=== PATIENT | male | born 1950 | race Caucasian/White ===

== ENCOUNTER 2016-10-27 14:16 | Inpatient (IN) | payer OTHER ==
[~2016-10-27] VITALS: Ht 177.8 cm; Wt 89.5 kg
[2016-10-27] VITALS (18 sets, daily range): BP systolic 80–140; BP diastolic 53–125; PULSE 100–172; RESP 19–25; O2SAT 91–98
--- NOTE | 2016-10-27 14:23 | ED.REPORT ---
HPI-Dyspnea / Wheezing Date of Service Oct 27, 2016 ED Provider: Pedro Hdez The patient is a 66 year old male with no known medical history who was brought to the emergency department by EMS for shortness of breath that has worsened over the week. He has also experienced a productive cough with white sputum, decreased appetite, and fatigue. He denies fever, chills, nausea, vomiting, abdominal pain, runny nose, nasal congestion or chest pain. He is a former smoker. Nursing Notes Stated Complaint: SOB Nursing Notes Reviewed: Yes Allergies: Coded Allergies: No Known Allergies (Unverified , 10/27/16) No Active Prescriptions or Reported Meds General Time Seen by MD: 14:23 Chief Complaint Shortness of breath Hx Obtained From: Patient, EMS Arrived By: Ambulance Sudden in Onset?: No Onset Occurred: 1 week ago Symptom Duration: Since onset Location: : None Severity: Current: No pain currently Severity: Maximum: No pain Recent Healthcare: No recent doctor visit, No recent hospitalization Similar Sx Previous: No Past Medical History Past Medical History Denies Family History Noncontributory Smoking History Former Smoker Social History Other Social History: Local resident Ambulatory Status Independent Review of Systems Constitutional: Reports: Fatigue, Denies: Chills, Fever Ears / Nose / Throat: Denies: Nasal congestion Respiratory: Reports: Prod cough, white, Shortness of breath Cardiovascular: Denies: Chest pain Allergy / Immune: Denies: Rhinorrhea Complete sys rev & neg: except as marked. GI: Reports: Anorexia, Denies: Abdominal pain, Nausea, Vomiting Physical Exam Initial Vital Signs Vital Signs (First) Date Time Temp Pulse Resp B/P Pulse Ox O2 Delivery O2 Flow Rate FiO2 10/27/16 14:28 37.1 172 23 117/83 91 Room Air 10/27/16 14:30 4 Initial VS: Reviewed Head / Eyes: Atraumatic, Normocephalic, PERRL ENT: Mucous membranes moist, Conjunctiva normal, No scleral icterus Abdomen / GI: Soft, Non-tender, No guarding, No rebound, No distention Lymphatic: No lymphadenopathy Extremities: Vascular intact, Neuro intact, No swelling, No tenderness Skin: Warm, Dry, No cyanosis Neurologic: Alert, Oriented, Nonfocal Psychiatric: Mood/affect normal, Behavior normal, Normal thought content General/Constitutional: Awake, Alert, Cooperative Neck: Atraumatic, Supple, No meningismus, Full range of motion, No swelling, Non-tender, No masses Respiratory / Chest: Atraumatic, Breath sounds = bilat, No respiratory distress , No rales, No rhonchi, No retractions, No stridor Coarse breath sounds bilaterally Cardiovascular: Heart sounds NL, No gallop, No murmurs, No rubs, Peripheral circulation NL Heart Rate / Rhythm: Positive: Tachycardia Interpretation & Diagnostics Lab Results Interpretation Result Diagram: 10/27/16 1424 10/27/16 1424 Test 10/27/16 14:24 White Blood Count 26.9th/mm3 (3.8-10.1) Red Blood Count 4.71mil/mm3 (4.40-5.80) Hemoglobin 14.9g/dL (13.8-17.2) Hematocrit 42.6% (41.0-50.0) Mean Corpuscular Volume 90.4fL (81-100) Mean Corpuscular Hemoglobin 31.6pg (27.0-35.0) Mean Corpuscular Hemoglobin Concent 35.0% (32.0-37.0) Red Cell Distribution Width 12.6% (12.3-15.4) Platelet Count 446bil/L (150-400) Neutrophils (%) (Auto) 80% (40-74) Lymphocytes (%) (Auto) 5% (14-46) Monocytes (%) (Auto) 6% (4-12) Eosinophils (%) (Auto) 0% (0-5) Basophils (%) (Auto) 0% (0-3) Band Neutrophils % 9% (1-5) Prothrombin Time 14.3sec (8.1-12.5) Prothromb Time International Ratio 1.33ratio Activated Partial Thromboplast Time 29.8sec (22.8-33.0) Potassium Level 3.7mEq/L (3.5-5.2) Chloride Level 81mEq/L (97-108) Carbon Dioxide Level 22mmol/L (18-29) Blood Urea Nitrogen 29mg/dL (8-27) Creatinine 1.07mg/dL (0.76-1.27) Estimat Glomerular Filtration Rate 74mL/min (>59) Glucose Level 195mg/dL (60-99) Calcium Level 8.8mg/dL (8.5-10.1) Total Bilirubin 1.4mg/dL (0.0-1.2) Aspartate Amino Transf (AST/SGOT) 72U/L (0-50) Alanine Aminotransferase (ALT/SGPT) 55U/L (0-44) Alkaline Phosphatase 89U/L (25-160) Troponin T < 0.010ug/L (0.0-0.011) Pro-B-Type Natriuretic Peptide 1421pg/mL (0-210) Total Protein 7.0g/dL (6.4-8.4) Albumin 2.8g/dL (3.4-5.0) Procalcitonin 1.58ng/mL (0.00-0.08) ECG Interpretation ECG Interpretation: Narrow complex tachycardia with a rate of 171 Time: 14:25 Interpreted by: ED physician ECG Interpretation: SVT with a rate of 171 Time: 15:10 Interpreted by: ED physician, [employer] X-Ray Chest Interpretation Chest Xray Interpretation: IMPRESSION: Extensive airspace disease within the right lung is more suspicious for pneumonia. Atypical pulmonary edema, aspiration, or pulmonary mass is felt to be unlikely. Followup conventional radiographic imaging of the chest is recommended when the patient's symptoms have resolved to ensure complete resolution. Dictated by: Tadeo Lee M.D. on 10/27/2016 at 14:17 Approved by: Tadeo Lee M.D. on 10/27/2016 at 14:18 View: Portable, 1 view Interpretation / Wet Read by: Interpret - Radiologist Procedures Conscious sedation performed with 60 of propofol just prior to cardioversion. Cardioversion with 120 J - successful. Timeout performed. Monitored throughout procedure. VSS. SVT Treatment Time: 15:50 Procedure Performed by: ED physician Consent / Timeout / Setup: Informed consent provided, Consent from patient, Time-out performed, Oxygen administered, Pulse oximeter applied, monitor tech applied Adenosine IV Attempt # 1: Unsuccessful Adenosine IV Attempt # 2: Unsuccessful Synch Cardioversion: Successful, Patient in NSR Procedural Sedation/Analgesia: Sedation: Propofol Post-Procedure: Complete relief, No complications, Tolerated procedure well, Patient stable Re-Eval/Medical Decision Med Decision/Clinical Course 66 yo m with sepsis/pneumonia. SVT on arrival 170s. Given adenosine 01/11/12 and diltiazem 20mg with no resolution. Per Cardiology recommendation, Cardioversion performed successfully with 120J. Conscious sedation with propofol. Admitted to Hospitalist - discussed and gave levaquin for CA-Pneumonia. Cultures sent. Source of Hx: EMS Re-Evaluation/Progress #1: Time of Eval: 14:44 Re-Evaluation/Progress Note: Adenosine administered at this time. There was no improvement in his heart rate. Re-Evaluation/Progress #2: Time of Eval: 15:49 Re-Evaluation/Progress Note: Discussed plan for cardioversion. Patient understands and agrees with plan. All questions addressed at this time. Consultation #1: Referral / Consult Name: Eh Davis MD Consulted With: Cardiology Call Returned at: 15:15 [employer]ting [employer] Creasing [employer] Operator: Will see patient Note: Discussed patient's case. Will see patient. Consultation #2: Referral / Consult Name: Eh Davis MD Consulted With: Cardiology Call Returned at: 15:25 [employer] Operator: Agrees with eval, Agrees with plan Note: Reviewed pt's repeat EKG. Suggests electrocardioverting patient Consultation #3: Referral / Consult Name: Pelon Lacey MD Consulted With: Hospitalist Call Returned at: 15:39 [employer] Operator: Will see patient, Agrees with eval, Agrees with plan, Accepts admit Note: Discussed patient's case. Accepts admit. Counseled Regarding: Diagnosis, Lab results, Need for admission Discharge & Departure Impression: Primary Impression: Pneumonia Additional Impression: SVT (supraventricular tachycardia) Disposition: ADMITTED TO HOSPITAL Discharge Condition All VS Reviewed: Yes Condition: Stable Referrals: Vince Blackman MD (PCP) Crit Care Except Billable Proc Time Spent: 75-104 minutes Services Performed: Patient management by me, Time spent at bedside, Reviewing test results, Reviewing imaging, Discussing patient care, Documentation in record Scribe Attestation Portions of this note were transcribed by eDborah Douglass. I, Dr. Hdez personally performed the history, physical exam and medical decision-making; I reviewed and confirmed the accuracy of the information in the transcribed note. Signed by: Arun Orourke, 10/27/2016 at 1500. copies to: Vince Blackman MD, Ben M MD Oct 27, 2016 14:23 Deborah Douglass Oct 27, 2016 14:29 DAGO VILLEDA 29, 2017 15:02 All VS Reviewed: Yes Condition: Stable Referrals: Vince Blackman MD (PCP) Crit Care Except Billable Proc Time Spent: 75-104 minutes Services Performed: Patient management by me, Time spent at bedside, Reviewing test results, Reviewing imaging, Discussing patient care, Documentation in record Scribe Attestation Portions of this note were transcribed by Deborah Douglass. I, Dr. Hdez personally performed the history, physical exam and medical decision-making; I reviewed and confirmed the accuracy of the information in the transcribed note. Signed by: Arun Orourke, 10/27/2016 at 1500. copies to: Vince Blackman MD, Ben M MD Oct 27, 2016 14:23 Deborah Douglass Oct 27, 2016 14:29 DAGO VILLEDA Oct 27, 2016 15:02
[2016-10-27] MEDS ORDERED: Adenosine 3 mg/mL 2 mL Inj ONE ×2 (14:37→14:53)
[2016-10-27 14:43] LABS: Mean Corpuscular Hemoglobin 31.6 pg (27.0-35.0); Mean Corpuscular Volume 90.4 fL (81-100); Platelet Count 446 bil/L (150-400)
[2016-10-27 14:46] LABS: INR 1.33 ratio
[2016-10-27] MEDS ORDERED: Diltiazem 5 mg/mL 5 mL Inj ONE (14:46)
[2016-10-27 14:54] LABS: TROPONIN T < 0.010 ug/L (0.0-0.011)
[2016-10-27 15:06] LABS: BASOPHILS % (AUTO) 0 % (0-3); EOSINOPHILS % (AUTO) 0 % (0-5); MONOCYTES % (AUTO) 6 % (4-12); NEUTROPHILS % (AUTO) 80 % (40-74)
--- NOTE | 2016-10-27 15:20 | DRSVH ---
PROCEDURE: X-RAY CHEST ONE VIEW, PORTABLE ([id number]) INDICATIONS: dyspnea TECHNIQUE: One view of the chest was acquired. COMPARISON: None. FINDINGS: Surgical changes and devices: None. Lungs and pleura: Extensive airspace disease is identified diffusely throughout the right lung, which is more prominent within the right upper lobe. Aeration of the left lung appears to be within jennifer l limits. No large effusion or definite pneumothorax is appreciated. Mediastinum: Mediastinal contours appear normal. Heart size is normal. Bones and chest wall: No suspicious bony lesions. Overlying soft tissues appear unremarkable. IMPRESSION: Extensive airspace disease within the right lung is more suspicious for pneumonia. Atypi octavia pulmonary edema, aspiration, or pulmonary mass is felt to be unlikely. Followup conventional rad iographic imaging of the chest is recommended when the patient's symptoms have resolved to ensure com plete resolution. Dictated by: Tadeo Lee M.D. on 10/27/2016 at 14:17 Approved by: Tadeo Lee M.D. on 10/27/2016 at 14:18
[2016-10-27] MEDS ORDERED: 0.9% Sodium Chloride 1,000 ML IV ONE ×2 (15:40→15:50)
[2016-10-27] MEDS ORDERED: levoFLOXacin Inj 750 MG in IV Premix 1 EACH IV ONE (15:40)
[2016-10-27] MEDS ORDERED: Propofol 10 mg/mL 20 mL Inj ONE (15:45)
[2016-10-27] MEDS ORDERED: Alum-Mag Hydrox-Simeth 30 mL Suspension PO PRN (16:00)
[2016-10-27] MEDS ORDERED: Ondansetron 2 mg/mL 2 mL Inj IVPUSH PRN (16:00)
[2016-10-27] MEDS ORDERED: Polyethylene Glycol (PEG) 17 Gm Powder PO PRN (16:15)
[2016-10-27] MEDS ORDERED: MetoCLOpramide 5 mg/mL 2 mL Inj IVPUSH PRN (16:35)
[2016-10-27] MEDS: 0.9% Sodium Chloride 1,000 ML IV SCH (17:50)
--- NOTE | 2016-10-27 17:55 | PCM.HPMED ---
Subjective Date of Service Oct 27, 2016 Primary Provider: Admitting Physician: Primary Care Physician: Vince Blackman MD Attending Physician: Chief Complaint: Worsening shortness of breath History of Present Illness: Patient is a 66 year old male with no known past medical history. He presented to [facility] on 10/27/16 with worsening shortness of breath. He reports that this has been coming on over the past few weeks but has gotten especially bad over the last week. He has difficulty laying flat, preferring to sit in his recliner for ease of breathing. He has noticed some wheezing that has also worsened over the same period. He has a productive cough but cannot describe the sputum. He denies fever, chills, and sweats. He has had no other cold or flu symptoms like sore throat or sinus congestion. He denies chest pain and heart racing. He endorses generalized weakness/fatigue. He has had poor appetite and difficulty sleeping. In the ED the patient was afebrile with a heart rate of 172, respiratory rate of 23, blood pressure of 117/83 and O2 saturation of 91% on room air. Labs were remarkable for WBC 26.9, platelets 446, sodium 125, lactic acid 2.1, total bilirubin 1.4, AST 72, ALT 55. For his sustained wide complex tachycardia the patient first received adenosine. The tachycardia was refractory to that medication and it was decided to cardiovert him. This intervention was affective. IV antibiotics initiated as were IV fluids. Patient discussed with Dr. Hdez and will be admitted to [facility] with telemetry. Review of Systems: A comprehensive review of systems was conducted with the patient and found to be negative except as above in the history of present illness. Allergies Coded Allergies: No Known Allergies (Unverified , 10/27/16) Home Medications None reported PMH None reported Surgical History None reported Family History No known family history of heart disease, stroke, and diabetes Social History Hx Alcohol Use: No Hx Substance Use: No Hx Tobacco Use: Yes Smoking Status: Former Smoker (Quit 5 years ago) Exam Vital Signs Vital Sign - Last Date Time Temp Pulse Resp B/P Pulse Ox O2 Delivery O2 Flow Rate FiO2 10/27/16 14:28 37.1 172 23 117/83 91 Room Air Exam Alert and oriented x3, no acute distress Head atraumatic, normocephalic PERRLA, EOMI, sclera anicteric Mucus membranes moist, no oral thrush observed No cervical lymphadenopathy, neck supple, nontender No JVD noted Cardiac tones regular rate and rhythm with no murmur appreciated, heart tones distant Lungs with expiratory wheezes heard throughout the lung anthony with tightness of breath sounds noted, poor respiratory effort, able to speak in full sentences without pause; E to A changes noted in the upper right lung anthony suggestive of consolidation No abdominal tenderness, non-distended, normoactive bowel tones, soft, ventral hernia noted Casas absent Radial pulses normal and equivalent bilaterally, dorsalis pedis pulses normal and equivalent bilaterally No cyanosis, clubbing or edema No ulcerations/open wounds; clammy upon palpation Cranial nerves appear to be fully intact, normal speech, patient can move upper and lower limbs grossly Lab and Diagnostics Result Diagram: 10/27/16 1424 10/27/16 1424 X-Rays, CTs and MRIs PROCEDURE: X-RAY CHEST ONE VIEW, PORTABLE IMPRESSION: Extensive airspace disease within the right lung is more suspicious for pneumonia. Atypical pulmonary edema, aspiration, or pulmonary mass is felt to be unlikely. Followup conventional radiographic imaging of the chest is recommended when the patient's symptoms have resolved to ensure complete resolution. Dictated by: Tadeo Lee M.D. on 10/27/2016 at 14:17 12-lead ECG Several EKG's reviewed. The initial testing done prior to cardioversion showed a wide complex tachycardia with a rate in the 170s and QTc of 533. After cardioversion the patient appeared to be in a sinus tachycardia with a rate of 102 and QTc of 509. Assessment & Plan Patient is a 66 year old male with no known past medical history. He presented to [facility] on 10/27/16 with worsening shortness of breath. Patient noted to have wide complex tachycardia requiring cardioversion in the ED. Also appears to have pneumonia on CXR and meeting sepsis criteria. Patient admitted for further monitoring and management. 1. Sepsis, acute, present on admission. - Criteria met: leukocytosis (26.9), tachycardia (172), likely pulmonary source. - IV fluids given in the ED. Will continue NS at 75 ml/hr. - Lactic acid elevated at 2.1. Will trend until normal. - Procalcitonin ordered and pending. - Blood cultures ordered and pending. - Continue to monitor CBC. - Treat underlying pneumonia as below in #2. 2. Community acquired pneumonia, acute, present on admission. - Levaquin given in ED. Due to prolonged QTc will discontinue and begin ceftriaxone and doxycycline (day 1 of presumed 5 day course). - Viral PCR ordered and pending. - Strep pneumo and legionella urine antigens ordered and pending. - Sputum culture ordered and pending. - Atrovent neb QIDWA and albuterol nebs Q2 PRN. - Tessalon Perles available TID PRN cough. - Chest x-ray reviewed and significant infiltrate noted on the right with the left lung looking clear. Repeat chest x-ray tomorrow AM. 3. Wide complex tachycardia, acute, present on admission. - Possibly secondary to sepsis. Patient does not see PCP so could have undiagnosed cardiac disease. - Patient cardioverted in the ED. Tolerated this procedure well with good results. - Treat the underlying pneumonia. - Continue telemetry monitoring. - Low threshold to do further cardiac workup including echocardiogram. 4. Elevated transaminases, acute, present on admission. - No known past medical history. Denies alcohol consumption. Etiology uncertain at this time. Appears hepatocellular in origin as alk phos normal. - Hepatitis panel ordered and pending. - Continue to monitor CMP. - Continue to monitor INR (initial 1.33). 5. Hyponatremia, acute, present on admission. - Reported poor PO intake recently with likely fluid depletion. - Patient has received fluid resuscitation for sepsis. Continue IV fluids overnight. - Repeat serum level ordered and pending. - Random urine sodium ordered and pending. - Continue to monitor BMP. 6. Prolonged QTc, acute, present on admission. - As seen on three EKGs. - Avoid QT prolonging drugs. - Continue telemetry. - Antiemetic available PRN. - Antacid available PRN. - Bowel regimen available PRN. - Tylenol available PRN mild pain, fever. Patient admitted under inpatient status with expected length of stay greater than 2 midnights for severity of present symptoms, complexities of treatment plan and risk for adverse events. No PCP GI Prophylaxis: Not indicated VTE Prophylaxis: Sub-Q Enoxaparin, SCDs Resuscitation Status: CPR: Attempt Resuscitation Time spent 1 hour Attending Statement The patient was seen and examined together with Dr. Hernandez on 10/27/16 and I agree with the history, exam and plan as outlined in the note above. Noelle Hernandez DO Oct 27, 2016 16:19 Catalina Fuller DO Oct 30, 2016 11:36
--- NOTE | 2016-10-27 18:00 | NUR ---
Arrived He arrived to [facility] 2010 at 1705 and was settled into and shown around his room. Telemetry was place on him as well as IV fluids and antibiotics started. Nasal PCR and a urinalysis collected and sent to the lab. He only peed 25 mls of rui urine upon arrival which is the first time he has urinated since arriving to the hospital even though he received 3L of IV fluid in the ED per Lucia Stoner RN in the ED. A breathing treatment was given to him for some shortness of breath. 4L of O2 placed (93%). Care continues.
--- NOTE | 2016-10-27 18:02 | PCM.ADCARE ---
Advance Care Planning Note Purpose of Encounter: To understand the patient's wishes and goals of care Parties in Attendance: Dr. Hernandez PGY3 and patient Decisional Capacity: Full Plan: I reviewed in details the prognosis and lack for the treatment of the patient's conditions including potential intubation and mechanical ventilation as well as CPR. He understands his condition and prefers to be full code including CPR and intubation. CODE STATUS: Patient is full code Time Spent Adv.Care Planninmin Catalina Fuller DO Oct 27, 2016 18:02
[2016-10-27] MEDS: Albuterol 2.5 mg/3 mL Inhalation Solution NEB PRN (18:13)
[2016-10-27 18:53] LABS: APPEARANCE,URINE CLEAR (CLEAR,HAZY); COLOR,URINE YELLOW (YELLOW); OCCULT BLOOD,URINE TRACE (NEGATIVE)
[2016-10-27] MEDS: Doxycycline Inj 100 MG in Dextrose 5% Minibag Plus 100 ML IV SCH (19:36)
[2016-10-27] MEDS ORDERED: Albuterol-Ipratropium 3 mL Inhalation Solution NEB SCH (21:00)
[2016-10-27] MEDS: Ipratropium 0.02% 0.5 mg/2.5 mL Inhalation Solution NEB SCH (23:03)
[2016-10-28] VITALS (10 sets, daily range): BP systolic 117–123; BP diastolic 68–78; PULSE 100–114; RESP 16–22; O2SAT 91–95
[2016-10-28 03:14] LABS: Mean Corpuscular Hemoglobin 31.9 pg (27.0-35.0); Mean Corpuscular Volume 91.9 fL (81-100); Platelet Count 396 bil/L (150-400)
[2016-10-28 03:23] LABS: INR 1.29 ratio
[2016-10-28 03:35] LABS: Magnesium 2.5 mg/dL (1.6-2.6); Phosphorus 3.2 mg/dL (2.5-4.9)
[2016-10-28 03:38] LABS: BASOPHILS % (AUTO) 0 % (0-3); EOSINOPHILS % (AUTO) 0 % (0-5); MONOCYTES % (AUTO) 9 % (4-12); NEUTROPHILS % (AUTO) 79 % (40-74)
--- NOTE | 2016-10-28 04:11 | NUR ---
Respiratory: 02 titrated down from 4 L NC to 1 L NC- sp02 low to mid 90s. Pt states he feel like he has alot less air hunger, and was able to sleep intermittently. PRN Tessalon Perls given for harsh, dry cough. Minimal sputum production noted- scant sample sent to lab.
[2016-10-28 07:15] LABS: Hepatitis A Antibody IgM Negative (Negative); Hepatitis B Core Antibody IgM Negative (Negative)
[2016-10-28] MEDS: cefTRIAXone Inj 2,000 MG in Dextrose 5% Minibag Plus 50 ML IV SCH (09:01)
[2016-10-28] MEDS: Ipratropium 0.02% 0.5 mg/2.5 mL Inhalation Solution NEB SCH ×4 (09:29→21:01)
[2016-10-28] MEDS: Albuterol 2.5 mg/3 mL Inhalation Solution NEB PRN ×2 (09:29→18:18)
--- NOTE | 2016-10-28 10:06 | DRSVH ---
PROCEDURE: X-RAY CHEST ONE VIEW, PORTABLE ([id number]) INDICATIONS: dyspnea, COUGH TECHNIQUE: One view of the chest was acquired. COMPARISON: [facility], CR, XR CHEST 1VW (PORTABLE), 10/27/2016, 15:05. FINDINGS: Surgical changes and devices: None. Lungs and pleura: Extensive airspace disease is identified diffusely throughout the right lung, which is more prominent within the right upper lobe. Aeration of the left lung appears to be within jennifer l limits. No large effusion or definite pneumothorax is identified. Mediastinum: Mediastinal contours appear normal. Heart size is normal. Bones and chest wall: No suspicious bony lesions. Overlying soft tissues appear unremarkable. IMPRESSION: No significant interval change in extensive airspace disease within the right lung. Antonella nued radiographic surveillance to resolution is recommended. Dictated by: Naun Puga [facility] Interpreted: Elizabeth Fry MD on 10/28/2016 at 10:04 Transcribed by: DRISS on 10/28/2016 at 10:05 Approved by: Elizabeth Fry MD, PhD on 10/28/2016 at 16:31
--- NOTE | 2016-10-28 11:24 | NUR ---
Scheduled hospital follow [facility] check in at 9AM for a 910AM appointment Updated KAREN
--- NOTE | 2016-10-28 15:57 | PCM.PNMED ---
Subjective Date of Service Oct 28, 2016 Subjective Overnight patient remained tachypneic however oxygen demands decreased from requiring 4 L nasal cannula to be able to maintain saturation at room air. He denies being any discomfort other than occasional cough and feeling like he is out of breath. Denies chest pain, lightheadedness, dizziness, dysuria, abdominal pain, nausea, vomiting, rashes, swelling in his extremities, no headaches, no changes in vision. Exam Vital Signs Vital Sign - Last Date Time Temp Pulse Resp B/P Pulse Ox O2 Delivery O2 Flow Rate FiO2 10/28/16 13:35 104 22 92 10/28/16 09:20 Room Air 4.00 10/28/16 03:02 37.0 117/68 Intake and Output 10/27/16 10/27/16 10/28/16 Cumulative From/Thru 15:00 23:00 07:00 10/27/16 16:11 - 10/28/16 05:15 Intake Total 1521 ml 1521 ml Output Total 25 ml 900 ml 925 ml Balance -25 ml 621 ml 596 ml Intake Oral 700 ml 700 ml IV Total 821 ml 821 ml Output Urine Total 25 ml 900 ml 925 ml # Voids 1 1 Exam General: Laying in bed, frequent coughing, HEENT: Normocephalic, atraumatic, EOMI grossly, Cardiovascular: Tachycardic, no clicks murmurs rubs, peripheral pulses 2/4 equal bilaterally Pulmonary: Coarse breath sounds throughout right lung field, mild egophony, left lung field clear to auscultation. Abdominal: Soft to palpation, bowel sounds present 4, no hepatosplenomegaly. Negative rebound. Extremities: No edema appreciated. No tenderness, asymmetry. Neuro: Neurologically grossly intact, strength is equal bilaterally upper and lower extremities. MSK: Able to move extremities on their own volition, strength 5 out of 5 equal bilaterally to upper and lower extremities. Lymphatics: Unable to appreciate any cervical, axillary, inguinal lymph nodes. IVs and Medications Medications Reviewed: Medications were reviewed in detail Lab and Diagnostics Result Diagram: 10/28/16 0246 10/28/16 0300 X-Rays, CTs and MRIs Portable chest x-ray performed 10/28/2016 IMPRESSION: No significant interval change in extensive airspace disease within the right lung. Continued radiographic surveillance to resolution is recommended. Dictated by: Naun DEAL Interpreted: Elizabeth Fry MD on 10/28/2016 at 10:04 PROCEDURE: X-RAY CHEST ONE VIEW, PORTABLE IMPRESSION: Extensive airspace disease within the right lung is more suspicious for pneumonia. Atypical pulmonary edema, aspiration, or pulmonary mass is felt to be unlikely. Followup conventional radiographic imaging of the chest is recommended when the patient's symptoms have resolved to ensure complete resolution. Dictated by: Tadeo Lee M.D. on 10/27/2016 at 14:17 12-lead ECG Several EKG's reviewed. The initial testing done prior to cardioversion showed a wide complex tachycardia with a rate in the 170s and QTc of 533. After cardioversion the patient appeared to be in a sinus tachycardia with a rate of 102 and QTc of 509. Assessment & Plan Patient is a 66 year old male with no known past medical history. He presented to [facility] on 10/27/16 with worsening shortness of breath. Patient noted to have wide complex tachycardia requiring cardioversion in the ED. Also appears to have pneumonia on CXR and meeting sepsis criteria. Patient admitted for further monitoring and treatment of the patient. 1. Sepsis, acute, present on admission. Improved - Criteria met: leukocytosis (26.9), tachycardia (172), likely pulmonary source. - IV fluids given in the ED, continued overnight, stopped this a.m. - Lactic acid elevated at 2.1. Has remained normal - Procalcitonin elevated, continue to trend - Blood cultures no growth after 24 hours - Continue to monitor CBC. - Treat underlying pneumonia as below in #2. 2. Community acquired pneumonia, acute, present on admission. Stable - Levaquin given in ED. Due to prolonged QTc will discontinue and begin ceftriaxone and doxycycline, To be completed October 31. (5d course) - Viral PCR negative - Influenza screen negative. - Strep pneumo and legionella urine antigens negative - Sputum culture pending. - Atrovent neb QIDWA and albuterol nebs Q2 PRN. -Hold for tachycardia 120 beats per minute - Tessalon Perles available TID PRN cough. - Acapella flutter valve hourly. - Chest x-ray today showed no appreciable interval change in left lung field. Repeat chest x-ray tomorrow AM. (Reviewed and compared to images personally) - If no interval change tomorrow on repeat chest xray, and no improvement in clinical pictures, consider ID consult of atypical causes and further evaluation. 3. Wide complex tachycardia, acute, present on admission. Stable - Possibly secondary to sepsis. Patient does not see PCP so could have undiagnosed cardiac disease. - Patient cardioverted in the ED (10/27/2016). Tolerated this procedure well with good results. - Treat the underlying pneumonia. - Continue telemetry monitoring. - Low threshold to do further cardiac workup including echocardiogram. 4. Elevated transaminases, acute, present on admission. Worsening. - No known past medical history. Denies alcohol consumption. Etiology uncertain at this time. Appears hepatocellular in origin as alk phos normal. - Hepatitis panel negative - Continue to monitor CMP. - Continue to monitor INR (initial 1.33). 5. Hyponatremia, acute, present on admission. Active. - Reported poor PO intake recently with likely fluid depletion, additionally has pulmonary infection. - Patient has received fluid resuscitation for sepsis. Fluids stopped. - mild improvement overnight. - Random urine sodium ordered and pending. - Continue to monitor BMP. 6. Prolonged QTc, acute, present on admission. improved. - As seen on three EKGs on admission, improved nearly 24 hrs later. - Avoid QT prolonging drugs. - Continue telemetry. - Antiemetic available PRN. - Antacid available PRN. - Bowel regimen available PRN. - Tylenol available PRN mild pain, fever. Patient admitted under inpatient status with expected length of stay greater than 2 midnights for severity of present symptoms, complexities of treatment plan and risk for adverse events. No PCP Pain Evaluation: Adequate Pain Control GI Prophylaxis: Not indicated VTE Prophylaxis: Sub-Q Enoxaparin, SCDs Resuscitation Status: CPR: Attempt Resuscitation Time spent 35 minutes Attending Statement The patient was seen and examined together with Dr. Asif on 10/28/16 and I have added additional information to the note above. Vin Asif DO Oct 28, 2016 15:57 Catalina Fuller DO Oct 30, 2016 11:29
--- NOTE | 2016-10-28 16:10 | NUR ---
Social Work: Screen Data/Assessment: Per EMR review, pt is a 66 year old male admitted for sepsis, pneumonia. Pt is [employer] with no supplement. PCP is Vince Blackman MD although pt states he is not current. Pt requested [facility] Residency Appointment. [facility] scheduled pt for 11/09/16 at 0900 at the [facility]. Pt has not completed advanced directives and declined information. Pt lives in [place], alone. He is I with ADLs at baseline. No social work needs identified at this time. anticipates pt to require at least 2 more days of hospitalization. Plan: Anticipate pt to discharge home via POV once medically stable; [employer] to continue to follow. KAREN Nicholson
[2016-10-28] MEDS: Doxycycline Inj 100 MG in Dextrose 5% Minibag Plus 100 ML IV SCH (18:10)
[2016-10-29] VITALS (11 sets, daily range): BP systolic 115–123; BP diastolic 65–77; PULSE 102–114; RESP 16–20; O2SAT 90–94
[2016-10-29 03:25] LABS: Mean Corpuscular Hemoglobin 31.8 pg (27.0-35.0); Mean Corpuscular Volume 92.6 fL (81-100); Platelet Count 428 bil/L (150-400)
[2016-10-29 03:42] LABS: BASOPHILS % (AUTO) 0 % (0-3); EOSINOPHILS % (AUTO) 0 % (0-5); MONOCYTES % (AUTO) 4 % (4-12); NEUTROPHILS % (AUTO) 88 % (40-74)
[2016-10-29 04:19] LABS: Magnesium 2.4 mg/dL (1.6-2.6)
[2016-10-29] MEDS: Ipratropium 0.02% 0.5 mg/2.5 mL Inhalation Solution NEB SCH ×4 (06:00→21:23)
[2016-10-29] MEDS ORDERED: 0.9% Sodium Chloride 500 ML IV ONE (09:25)
--- NOTE | 2016-10-29 09:43 | DRSVH ---
PROCEDURE: X-RAY CHEST ONE VIEW, PORTABLE ([id number]) INDICATIONS: PNA TECHNIQUE: One view of the chest was acquired. COMPARISON: [facility], CR, XR CHEST 1VW (PORTABLE), 10/28/2016, 5:04. FINDINGS: Surgical changes and devices: None. Lungs and pleura: Extensive airspace disease is identified diffusely throughout the right lung, which is more prominent within the right upper lobe. Aeration of the left lung appears to be Normal exam. . No large effusion or pneumothorax is identified. Mediastinum: Mediastinal contours appear normal. Heart size is normal. Bones and chest wall: No suspicious bony lesions. Overlying soft tissues appear unremarkable. IMPRESSION: No significant interval change in extensive airspace disease within the right lung. Antonella nued radiographic surveillance to resolution is recommended. Dictated by: Naun Puga [facility] Interpreted: Elizabeth Fry MD on 10/29/2016 at 9:42 Transcribed by: DRISS on 10/29/2016 at 9:42 Approved by: Elizabeth Fry MD, PhD on 10/29/2016 at 16:35
[2016-10-29] MEDS: cefTRIAXone Inj 2,000 MG in Dextrose 5% Minibag Plus 50 ML IV SCH (10:00)
[2016-10-29] MEDS ORDERED: 0.9% Sodium Chloride 500 ML IV SCH (12:30)
--- NOTE | 2016-10-29 15:52 | PCM.PNMED ---
Subjective Date of Service Oct 29, 2016 Subjective Patient reports he is doing well overnight, continues to have cough. Denies any lightheadedness, dizziness, chest pain, shortness of breath, nausea vomiting diarrhea, numbness in his arms hands feet or legs, no headache. Exam Vital Signs Vital Sign - Last Date Time Temp Pulse Resp B/P Pulse Ox O2 Delivery O2 Flow Rate FiO2 10/29/16 12:29 112 93 Room Air 10/29/16 12:06 36.9 20 116/75 10/28/16 09:20 4.00 Intake and Output 10/28/16 10/28/16 10/29/16 Cumulative From/Thru 15:00 23:00 07:00 10/27/16 16:11 - 10/29/16 06:28 Intake Total 600 ml 640 ml 2761 ml Output Total 350 ml 800 ml 2075 ml Balance 250 ml -160 ml 686 ml Intake Oral 500 ml 640 ml 1840 ml IV Total 100 ml 921 ml Output Urine Total 350 ml 800 ml 2075 ml # Voids 1 Exam General: Laying in bed, frequent coughing, HEENT: Normocephalic, atraumatic, EOMI grossly, Cardiovascular: Tachycardic, no clicks murmurs rubs, peripheral pulses 2/4 equal bilaterally Pulmonary: Coarse breath sounds throughout right lung field, mild egophony, left lung field clear to auscultation. Abdominal: Soft to palpation, bowel sounds present 4, no hepatosplenomegaly. Negative rebound. Extremities: No edema appreciated. No tenderness, asymmetry. Neuro: Neurologically grossly intact, strength is equal bilaterally upper and lower extremities. MSK: Able to move extremities on their own volition, strength 5 out of 5 equal bilaterally to upper and lower extremities. Lymphatics: Unable to appreciate any cervical, axillary, inguinal lymph nodes. IVs and Medications Medications Reviewed: Medications were reviewed in detail Lab and Diagnostics Result Diagram: 10/29/16 0320 10/29/16 0320 X-Rays, CTs and MRIs Portable chest x-ray performed 10/29/2016 IMPRESSION: No significant interval change in extensive airspace disease within the right lung. Continued radiographic surveillance to resolution is recommended. Dictated by: Naun DEAL Interpreted: Elizabeth Fry MD on 10/29/2016 at 9:42 Portable chest x-ray performed 10/28/2016 IMPRESSION: No significant interval change in extensive airspace disease within the right lung. Continued radiographic surveillance to resolution is recommended. Dictated by: Naun Puga RRA Interpreted: Elizabeth Fry MD on 10/28/2016 at 10:04 PROCEDURE: X-RAY CHEST ONE VIEW, PORTABLE IMPRESSION: Extensive airspace disease within the right lung is more suspicious for pneumonia. Atypical pulmonary edema, aspiration, or pulmonary mass is felt to be unlikely. Followup conventional radiographic imaging of the chest is recommended when the patient's symptoms have resolved to ensure complete resolution. Dictated by: Tadeo Lee M.D. on 10/27/2016 at 14:17 12-lead ECG Several EKG's reviewed. The initial testing done prior to cardioversion showed a wide complex tachycardia with a rate in the 170s and QTc of 533. After cardioversion the patient appeared to be in a sinus tachycardia with a rate of 102 and QTc of 509. Assessment & Plan Patient is a 66 year old male with no known past medical history. He presented to [facility] on 10/27/16 with worsening shortness of breath. Patient noted to have wide complex tachycardia requiring cardioversion in the ED. Also appears to have pneumonia on CXR and meeting sepsis criteria. Patient admitted for further monitoring and treatment of the patient. Hospital day 2 1. Sepsis, acute, present on admission. Improved - Criteria met: leukocytosis (26.9), tachycardia (172), likely pulmonary source. - IV fluids given in the ED, continued overnight, stopped this a.m. - Lactic acid elevated at 2.1. Has remained normal - Procalcitonin elevated, continue to trend - Blood cultures no growth after 24 hours - Continue to monitor CBC. - Treat underlying pneumonia as below in #2. 2. Community acquired pneumonia, acute, present on admission. Stable - Levaquin given in ED. Due to prolonged QTc was discontinue and placed on ceftriaxone and doxycycline. - QTc normalized today (evaluated EKG today), Switched back to Levofloxacin 750mg IV Daily. Re-evaluate EKG tomorrow. To be completed November 02. (7d course ) - Sputum culture: Preliminary identification: Staph, probably Staph aureus, susceptibilities not yet resulted - Viral PCR negative - Influenza screen negative. - Strep pneumo and legionella urine antigens negative - Atrovent neb QIDWA and albuterol nebs Q2 PRN. -Hold for tachycardia 120 beats per minute - Tessalon Perles available TID PRN cough. - Acapella flutter valve hourly. - Chest x-ray today showed no appreciable interval change in left lung field. Repeat chest X-ray with worsening respiratory status, and follow up as out patient. (Reviewed and compared to images personally) 3. Wide complex tachycardia, acute, present on admission. Stable - Possibly secondary to sepsis, however, patient states that he is always had a high heart rate as far back as his teens typically runs greater than 100bpm. This is per patient report, there is no documentation of this. - Patient does not see PCP so could have undiagnosed cardiac disease. - Patient cardioverted in the ED (10/27/2016). Tolerated this procedure well with good results. - Treat the underlying pneumonia. - Continue telemetry monitoring. - Low threshold to do further cardiac workup including echocardiogram. 4. Elevated transaminases, acute, present on admission. Stable. - No known past medical history. Denies alcohol consumption. Etiology uncertain at this time. Appears hepatocellular in origin as alk phos normal. - Hepatitis panel negative - Continue to monitor CMP. - Continue to monitor INR (initial 1.33). 5. Hyponatremia, acute, present on admission. Active. - Reported poor PO intake recently with likely fluid depletion, additionally has pulmonary infection. - Patient has received fluid resuscitation for sepsis. Fluids stopped. - mild improvement overnight. - Random urine sodium ordered and pending. - Continue to monitor BMP. 6. Prolonged QTc, acute, present on admission. Resolved. - As seen on three EKGs on admission, improved nearly 24 hrs later, Resolved - Avoid QT prolonging drugs. - Continue telemetry. 7. Pre-Diabetes mellitus, present on admission, treatment initiated. - Hemoglobin A1c 5.9 - Constant carb diet - Dietitian consultation and education - Patient is tyler at this time to any intervention for elevated blood sugar, would like patient to have a chance at conservative therapy before initiating medication. - Antiemetic available PRN. - Antacid available PRN. - Bowel regimen available PRN. - Tylenol available PRN mild pain, fever. Disposition: Anticipate patient will be here at 1-2 nights to receive intravenous antibiotics, and monitoring for evolution of pulmonary infection. Will need primary care physician on discharge No PCP Pain Evaluation: Adequate Pain Control GI Prophylaxis: Not indicated VTE Prophylaxis: Sub-Q Enoxaparin, SCDs Resuscitation Status: CPR: Attempt Resuscitation Time spent 35 minutes Attending Statement The patient was seen and examined together with Dr. Asif on 10/29/16 and I have added additional information to the note above. Vin Asif DO Oct 29, 2016 15:52 Catalina Fuller DO Oct 30, 2016 11:52
--- NOTE | 2016-10-29 19:03 | NUR ---
Unremarkable shift Cardiac: Patient denies chest pain; TELE ST 110's Resp: sp02 low- mid 90s on RA GI/: Pt denies N/V/D Neuro: A&Ox3; GUTIERREZ; Pt has stutter
[2016-10-30] VITALS (13 sets, daily range): BP systolic 104–135; BP diastolic 64–90; PULSE 86–115; RESP 16–20; O2SAT 90–96
[2016-10-30 02:57] LABS: Mean Corpuscular Hemoglobin 31.3 pg (27.0-35.0); Mean Corpuscular Volume 94.8 fL (81-100); Platelet Count 468 bil/L (150-400)
[2016-10-30 03:16] LABS: BASOPHILS % (AUTO) 0 % (0-3); EOSINOPHILS % (AUTO) 0 % (0-5); MONOCYTES % (AUTO) 10 % (4-12)
[2016-10-30 03:17] LABS: NEUTROPHILS % (AUTO) 78 % (40-74)
--- NOTE | 2016-10-30 06:06 | NUR ---
Respiratory: pt continues on RA- sp02 low 90s. Dry cough improving- becoming less frequent and harsh. Tele Sach low 100s. pt sleeping overnight- Vitals stable, no c/o pain.
[2016-10-30] MEDS ORDERED: 0.9% Sodium Chloride 1,000 ML IV ONE (07:45)
[2016-10-30] MEDS ORDERED: levoFLOXacin Inj 750 MG in IV Premix 1 EACH IV SCH (08:30)
[2016-10-30] MEDS: Ipratropium 0.02% 0.5 mg/2.5 mL Inhalation Solution NEB SCH ×4 (08:38→20:54)
[2016-10-30] MEDS ORDERED: 0.9% Sodium Chloride 500 ML IV ONE (11:10)
--- NOTE | 2016-10-30 11:22 | PCM.PNMED ---
Subjective Date of Service Oct 30, 2016 Subjective Overnight was unremarkable. Patient states he is feeling better, citing less coughing and less shortness of breath though not completely resolved. Comprehensive ROS was otherwise negative. Exam Vital Signs Vital Sign - Last Date Time Temp Pulse Resp B/P Pulse Ox O2 Delivery O2 Flow Rate FiO2 10/30/16 09:30 104 16 115/88 92 Room Air 10/30/16 03:11 37.2 10/28/16 09:20 4.00 Intake and Output 10/29/16 10/29/16 10/30/16 Cumulative From/Thru 15:00 23:00 07:00 10/27/16 16:11 - 10/30/16 06:18 Intake Total 1227 ml 300 ml 5288 ml Output Total 1400 ml 350 ml 3825 ml Balance -173 ml -50 ml 1463 ml Intake Oral 1127 ml 300 ml 3267 ml IV Total 100 ml 2021 ml Output Urine Total 1400 ml 350 ml 3825 ml # Voids 2 3 Exam General: Laying in bed, in mild distress, frequent coughing, HEENT: Normocephalic, atraumatic, EOMI grossly, no JVD, mucous membranes moist, conjunctiva pink Cardiovascular: Tachycardic, no clicks murmurs rubs, peripheral pulses 2/4 equal bilaterally Pulmonary: Coarse breath sounds throughout right lung field, mild egophony with improvement in apical field compared to yesterday, left lung field clear to auscultation. Abdominal: Soft to palpation, bowel sounds present 4, no hepatosplenomegaly. Negative rebound. Ventral and umbilical hernias appreciated, easily reducible. Extremities: No edema appreciated. No tenderness, asymmetry. Neuro: Neurologically grossly intact, strength is equal bilaterally upper and lower extremities. Pt has a stutter. MSK: Able to move extremities on their own volition, strength 5 out of 5 equal bilaterally to upper and lower extremities. Lymphatics: Unable to appreciate any cervical, axillary, inguinal lymph nodes. IVs and Medications Medications Reviewed: Medications were reviewed in detail Lab and Diagnostics Result Diagram: 10/30/16 0240 10/30/16 0240 Microbiology Positive identification a Staph aureus with some resistance to clindamycin, erythromycin, tetracycline. Highly sensitive to moxifloxacin, and oxacillin. X-Rays, CTs and MRIs Portable chest x-ray performed 10/29/2016 IMPRESSION: No significant interval change in extensive airspace disease within the right lung. Continued radiographic surveillance to resolution is recommended. Dictated by: Naun DEAL Interpreted: Elizabeth Fry MD on 10/29/2016 at 9:42 Portable chest x-ray performed 10/28/2016 IMPRESSION: No significant interval change in extensive airspace disease within the right lung. Continued radiographic surveillance to resolution is recommended. Dictated by: Naun DEAL Interpreted: Elizabeth Fry MD on 10/28/2016 at 10:04 PROCEDURE: X-RAY CHEST ONE VIEW, PORTABLE IMPRESSION: Extensive airspace disease within the right lung is more suspicious for pneumonia. Atypical pulmonary edema, aspiration, or pulmonary mass is felt to be unlikely. Followup conventional radiographic imaging of the chest is recommended when the patient's symptoms have resolved to ensure complete resolution. Dictated by: Tadeo Lee M.D. on 10/27/2016 at 14:17 12-lead ECG Several EKG's reviewed. The initial testing done prior to cardioversion showed a wide complex tachycardia with a rate in the 170s and QTc of 533. After cardioversion the patient appeared to be in a sinus tachycardia with a rate of 102 and QTc of 509. Assessment & Plan Patient is a 66 year old male with no known past medical history. He presented to [facility] on 10/27/16 with worsening shortness of breath. Patient noted to have wide complex tachycardia requiring cardioversion in the ED. Also appears to have pneumonia on CXR and meeting sepsis criteria. Patient admitted for further monitoring and treatment of the patient. Hospital day 4 1. Sepsis, acute, present on admission. Improved - Criteria met: leukocytosis (26.9), tachycardia (172), likely pulmonary source. -White count trending down, remains tachycardic, however his heart rate is typically over 100, and this should be discontinued as a marker for continued sepsis in this gentleman, however given his baseline being around 100 beats per minute he still had a significant sinus tachycardia on admission above his baseline conferring the diagnosis of acute sepsis. - Continuous IV fluids stopped 10/29/16. - Lactic acid elevated at 2.1. Has remained normal - Procalcitonin elevated, continues to trend down. - Blood cultures no growth after 24 hours, sputum cultures positive for staph aureus, see below. - Continue to monitor CBC. - Treat underlying pneumonia as below in #2. 2. Community acquired pneumonia, acute, present on admission. Stable - Levaquin given in ED. Due to prolonged QTc was discontinue and placed on ceftriaxone and doxycycline. - QTc normalized hospital day 2, Switched back to Levofloxacin 750mg IV Daily. EKG to be performed following administration. To be completed November 03. (7d course) - Sputum culture: Staph aureus, resistance to clindamycin, erythromycin, tetracycline. Highly sensitive to moxifloxacin, and oxacillin. - Based on scant objective improvement white count and lung sounds, switching back to ceftriaxone and adding azithromycin. - STOP Levofloxacin. - Viral PCR negative - Influenza screen negative. - Strep pneumo and legionella urine antigens negative - Atrovent neb QIDWA and albuterol nebs Q2 PRN. -Hold for tachycardia 120 beats per minute - Tessalon Perles available TID PRN cough. - Acapella flutter valve hourly. - Chest x-rays showed no appreciable interval change in left lung anthony. Repeat chest X-ray with worsening respiratory status, and follow up as out patient. (Reviewed and compared to images personally) 3. Wide complex tachycardia, acute, present on admission. Stable - Possibly secondary to sepsis, however, patient states that he has always had a high heart rate as far back as his teens typically runs greater than 100bpm. This is per patient report, there is no documentation of this. - Patient does not see PCP so could have undiagnosed cardiac disease. - Patient cardioverted in the ED (10/27/2016). Tolerated this procedure well with good results. - Treat the underlying pneumonia. - Continue telemetry monitoring. - Low threshold to do further cardiac workup including echocardiogram. 4. Elevated transaminases, acute, present on admission. Stable. - No known past medical history. Denies alcohol consumption. Etiology uncertain at this time. Appears hepatocellular in origin as alk phos normal. - Hepatitis panel negative - Continue to monitor CMP. - Continue to monitor INR (initial 1.33). 5. Hyponatremia, acute, present on admission. Active. - Reported poor PO intake recently with likely fluid depletion, additionally has pulmonary infection. - Patient has received fluid resuscitation for sepsis. Fluids stopped. - Remains stable, but low. - Half liter bolus NS, recheck this afternoon. - Random urine sodium normal. - Continue to monitor BMP. 6. Prolonged QTc, acute, present on admission. Resolved. - As seen on three EKGs on admission, improved nearly 24 hrs later, Resolved - Avoid QT prolonging drugs. - Repeat EKG following administration of levofloxacin and 10/31/16 in AM. - Continue telemetry. 7. Pre-Diabetes mellitus, present on admission, treatment initiated. - Hemoglobin A1c 5.9 - Constant carb diet - Dietitian consultation and education today. - Patient is tyler at this time to any intervention for elevated blood sugar, would like patient to have a chance at conservative therapy before initiating medication. - Antiemetic available PRN. - Antacid available PRN. - Bowel regimen available PRN. - Tylenol available PRN mild pain, fever. Disposition: Anticipate patient will be here at 1-2 nights to receive intravenous antibiotics, and monitoring for evolution of pulmonary infection. Will need primary care physician on discharge No PCP Pain Evaluation: Adequate Pain Control GI Prophylaxis: Not indicated VTE Prophylaxis: Sub-Q Enoxaparin, SCDs Resuscitation Status: CPR: Attempt Resuscitation Time spent 35 minutes Attending Statement The patient was seen and examined together with Dr. Asif on 10/30/16 and I have added additional information to the note above. Vin Asif DO Oct 30, 2016 11:21 Catalina Fuller DO Oct 30, 2016 18:10
--- NOTE | 2016-10-30 11:39 | NUR ---
Telemetry Per tele, pt has had increasing PACs since 0150 10/30/2016. MD titus. Pt to have scheduled EKG at approximately 1200 today. Will continue to monitor. Addendum: 10/30/16 at 1801 by SPARKLE AGUILERA RN Pt had an 11s run of PSVT at 1253, followed by a shorter 4s run @ 1254. MD titus.
[2016-10-30] MEDS ORDERED: cefTRIAXone Inj 2,000 MG in Dextrose 5% Minibag Plus 50 ML IV SCH (12:00)
[2016-10-30] MEDS: 0.9% Sodium Chloride 1,000 ML IV SCH (20:13)
[2016-10-30] MEDS: MeTOProlol XL 25 mg ER24 Tablet PO SCH (20:18)
--- NOTE | 2016-10-30 21:54 | NUR ---
Communication Reviewed fall precautions. Pt verbalized understanding to use the nurse call light when he is up OOB to use the bathroom. Currently, He is independent in the room.
[2016-10-31] VITALS (9 sets, daily range): BP systolic 112–138; BP diastolic 76–93; PULSE 93–103; RESP 16–20; O2SAT 93–94
[2016-10-31 02:59] LABS: Mean Corpuscular Hemoglobin 31.6 pg (27.0-35.0); Mean Corpuscular Volume 94.9 fL (81-100)
[2016-10-31 03:23] LABS: BASOPHILS % (AUTO) 0 % (0-3); EOSINOPHILS % (AUTO) 0 % (0-5); MONOCYTES % (AUTO) 6 % (4-12); NEUTROPHILS % (AUTO) 76 % (40-74)
[2016-10-31 03:24] LABS: Platelet Count 474 bil/L (150-400)
[2016-10-31] MEDS: Ipratropium 0.02% 0.5 mg/2.5 mL Inhalation Solution NEB SCH (06:00)
--- NOTE | 2016-10-31 06:45 | NUR ---
Morning note Pt had no complaints overnight. He remains on 2LNC to maintain oxygen saturations greater than 92% Care plan reviewed.. Pt verbalizes understanding
[2016-10-31] MEDS ORDERED: predniSONE 20 mg Tablet PO ONE (07:45)
[2016-10-31] MEDS ORDERED: Azithromycin Inj 500 MG in Dextrose 5% w/Vial Mate 250 ML IV SCH (08:30)
[2016-10-31] MEDS: MeTOProlol XL 25 mg ER24 Tablet PO SCH (09:24)
[2016-10-31] MEDS: Linezolid Inj 600 MG in IV Premix 1 EACH IV SCH ×2 (10:36→21:34)
--- NOTE | 2016-10-31 12:44 | DRSVH ---
[facility] [address] [place] [address] Echocardiogram Report Name: STEPHANIE STEELE Study Date: 10/31/2016 Height: 70 in Hospital Exam Location: [facility] Weight: 198 lb Gender: Male BSA: 2.1 m2 : 1950 Age: 66 yrs BP: 112/78 mmHg Reason For Study: TACHYARRHYTHMIA Ordering Physician: [facility]PITAL[facility] Performed By: Bienvenido Reyes Referring Physician: Dr. Gage Blackman Interpretation Summary 1. Normal left ventricular size, wall thickness and systolic function with an estimated EF of 60-65% 2. Normal right ventricular size and systolic function. 3. No valvular pathology appreciated. There is no old study for comparison Procedure: A two-dimensional transthoracic echocardiogram with color flow and Doppler was performed. The study quality was technically adequate. There is no prior echocardiogram noted for this patient. The patient was in normal sinus rhythm during the exam. Left Ventricle: The left ventricle is normal in size. There is normal left ventricular wall thickness. The ejection fraction is estimated to be 60-65%. There are no obvious focal wall motion abnormalities noted but poor endocardial definition reduces the sensitivity for the detection of such. Right Ventricle: The right ventricle is normal in size and function. Atria: Both atria are normal in size. No color doppler evidence for an ASD. Mitral Valve: The mitral valve is normal in structure and function. There is no mitral regurgitation noted. Aortic Valve: The aortic valve is trileaflet. The aortic valve opens well. No aortic regurgitation is present. Tricuspid Valve: The tricuspid valve leaflets are thin and pliable. There is a trace or physiologic amount of tricuspid regurgitation. Pulmonary artery pressures cannot be estimated because of the lack of a measurable TR jet velocity. Pulmonic Valve: The pulmonic valve is not well visualized. Great Vessels: The aortic root is normal size. The dimensions of the ascending aorta are normal. The pulmonary artery is normal size. The IVC is of normal diameter and collapses greater than 50% with a sniff. This suggests a low right atrial pressure of 3 mm Hg. Pericardium/ Pleura There is no pericardial effusion. There is no pleural effusion. MMode/2D Measurements & Calculations LVIDd: 4.9 cm LA dimension: 2.8 cm RA long axis Ao root diam LVIDs: 3.6 cm FS: 26.7 % LA A2 area: 17.2 cm RA area asc Aorta EPSS: 0.65 cm LA A4 area: 19.6 cm Diam: 3.3 cm IVSd: 0.86 cm LA length (vol): 4.5 cm : 17.9 cm LVPWd: 0.91 cm LA vol: 63.4 ml RA vol: 53.4 ml LA vol index RA : 25.7 mm2 IVC diam: 0.84 cm LV palomares. diameter/BSA LV sys. diameter/BSA (cm/m^2): 2.4 (cm/m^2): 1.7 Doppler Measurements & Calculations Ao V2 max MV E max robb MV E/A: 0.89 PA V2 max: 61.3 cm/sec : 132.2 cm/sec : 59.2 cm/sec Med Peak E' Robb PA mean P.94 mmHg Ao max PG MV A max robb PA Accel Time: 0.10 sec : 7.0 mmHg : 66.7 cm/sec E/E' med: 6.0 Ao mean PG Pulm A Revs Dur : 3.7 mmHg MV A dur: 0.11 sec MV dec time Ao V2 mean PA V2 mean Pulm A Revs Dur - MV A : 0.15 sec : 92.2 cm/sec : 46.5 cm/sec Dur: -0.03 msec Ao V2 VTI PA pr(Accel) : 22.5 cm : 29.1 mmHg Reading Physician:12:43 PM
[2016-10-31] MEDS ORDERED: Ipratropium 0.02% 0.5 mg/2.5 mL Inhalation Solution NEB PRN (13:02)
--- NOTE | 2016-10-31 13:29 | PCM.PNMED ---
Subjective Date of Service Oct 31, 2016 Subjective Patient reports that he is doing well this morning. He denies fever and chills. He continues to have some cough but it is less productive. He denies shortness of breath. He denies palpitations, chest pain and heart racing. Overnight, patient continued to use 2L O2 via nasal cannula. There were no other events. Exam Vital Signs Vital Sign - Last Date Time Temp Pulse Resp B/P Pulse Ox O2 Delivery O2 Flow Rate FiO2 10/31/16 11:59 37.0 98 18 134/93 93 Room Air 10/31/16 03:21 2.00 Intake and Output 10/30/16 10/30/16 10/31/16 Cumulative From/Thru 15:00 23:00 07:00 10/27/16 16:11 - 10/31/16 05:35 Intake Total 689 ml 1036 ml 440 ml 7453 ml Output Total 1025 ml 1500 ml 6350 ml Balance 689 ml 11 ml -1060 ml 1103 ml Intake Oral 1036 ml 440 ml 4743 ml IV Total 689 ml 2710 ml Output Urine Total 1025 ml 1500 ml 6350 ml # Voids 3 # Bowel Movements 1 0 1 Exam Alert and oriented x3, no acute distress Head atraumatic, normocephalic PERRLA, EOMI, sclera anicteric Mucus membranes moist, no oral thrush observed No cervical lymphadenopathy, neck supple, nontender No JVD noted Cardiac tones regular rate and rhythm with no murmur appreciated, heart tones distant Lungs with decreased breath sounds on the right when compared to the left; relatively clear breath sounds bilaterally No abdominal tenderness, non-distended, normoactive bowel tones, soft, ventral hernia noted Casas absent Radial pulses normal and equivalent bilaterally, dorsalis pedis pulses normal and equivalent bilaterally No cyanosis, clubbing or edema No ulcerations/open wounds; clammy upon palpation Cranial nerves appear to be fully intact, normal speech, patient can move upper and lower limbs grossly IVs and Medications Medications Reviewed: Medications were reviewed in detail Lab and Diagnostics Result Diagram: 10/31/16 0230 10/31/16 0230 X-Rays, CTs and MRIs Portable chest x-ray performed 10/29/2016 IMPRESSION: No significant interval change in extensive airspace disease within the right lung. Continued radiographic surveillance to resolution is recommended. Dictated by: Naun DEAL Interpreted: Elizabeth Fry MD on 10/29/2016 at 9:42 Cardiac Echo Impressions Interpretation Summary 1. Normal left ventricular size, wall thickness and systolic function with an estimated EF of 60-65% 2. Normal right ventricular size and systolic function. 3. No valvular pathology appreciated. There is no old study for comparison. Reading Physician:12:43 PM Assessment & Plan Patient is a 66 year old male with no known past medical history. He presented to [facility] on 10/27/16 with worsening shortness of breath. Patient noted to have SVT requiring cardioversion in the ED. Also appears to have pneumonia on CXR and meeting sepsis criteria. Patient admitted for further monitoring and treatment. Hospital day 5 1. Sepsis, acute, present on admission, improving. - Criteria met: leukocytosis (26.9), tachycardia (172), likely pulmonary source. - Continue to monitor CBC. - Treat underlying pneumonia as below in #2. 2. Community acquired pneumonia, acute, present on admission, improving. - Sputum culture Staph aureus. - Patient has already received five days of antibiotics including ceftriaxone, levofloxacin, doxycycline, and azithromycin. Switching to linezolid today as no significant improvement has been noted. Will plan for total of 7 days linezolid if well tolerated and appears effective (11/06/16). - Atrovent neb QIDWA PRN and albuterol nebs Q2 PRN. - Tessalon Perles available TID PRN cough. - Acapella flutter valve hourly. - Discontinue supplemental O2 as patient is maintaining O2 saturation without assistance. 3. SVT or wide complex tachycardia, acute, present on admission, improved. - Possibly secondary to sepsis, however, patient states that he has always had a high heart rate as far back as his teens typically runs greater than 100bpm. This is per patient report, there is no documentation of this. - Patient does not see PCP so could have undiagnosed cardiac disease. - Patient cardioverted in the ED (10/27/2016). Tolerated this procedure well with good results. - Treat the underlying pneumonia. - Continue telemetry monitoring. 4. Elevated transaminases, acute, present on admission, stable. - No known past medical history. Denies alcohol consumption. Etiology uncertain at this time. Appears hepatocellular in origin as alk phos normal. - Continue to monitor CMP. - Continue to monitor INR. 5. Hyponatremia, acute, present on admission, improved. - Reported poor PO intake recently with likely fluid depletion, additionally has pulmonary infection. - Patient has received fluid resuscitation for sepsis. Fluids stopped. - Continue to monitor BMP. 6. Prolonged QTc, acute, present on admission, resolved. - Repeat EKG's as needed. - Continue telemetry. 7. Pre-Diabetes mellitus, present on admission, new diagnosis. - Hemoglobin A1c 5.9. - Constant carb/ADA diet. - Dietitian consultation and education today. - Patient is tyler at this time to any intervention for elevated blood sugar, would like patient to have a chance at conservative therapy before initiating medication. - Antiemetic available PRN. - Antacid available PRN. - Bowel regimen available PRN. - Tylenol available PRN mild pain, fever. Disposition: possible discharge tomorrow if tolerating linezolid well. Could go home with PO linezolid. Will need PCP to establish care with at time of discharge. GI Prophylaxis: Not indicated VTE Prophylaxis: Sub-Q Enoxaparin, SCDs Resuscitation Status: CPR: Attempt Resuscitation Time spent 30 minutes Attending Statement The patient was seen and examined together with Dr. Hernandez on 10/31/16 and I have added additional information to the note above. Noelle Hernandez DO Oct 31, 2016 13:29 Catalina Fuller DO Oct 31, 2016 16:23
--- NOTE | 2016-10-31 13:54 | NUR ---
Social Work Note: Readiness for Discharge Data& Assessment: Pt is not medically ready for discharge at this time. Per MD in morning rounds, pt could be medically ready for discharge in the next 1-2 days. Pt will be transferred from IV-P.O antibiotics. SW met with pt at bedside to confirm discharge plan and assess for any unmet needs. Pt reports that he is ambulating at baseline. Pt did explain that he will most likely need a taxi ride home. Pt confirmed that he has his credit card with his belongings her at the hospital. Pt denied any other needs at this time. SW to continue to follow if any needs arise. Plan: Anticipated discharge home via private pay taxi when medically ready. Pt denied any other needs at this time. SW to continue to follow if any needs arise. KAREN Renae
--- NOTE | 2016-10-31 15:10 | NUR ---
Oxygen/Telemetry Pt on RA for shift today. Oxygen Sats have remained in mid 90s. Pt denies SOB, and is encouraged to get out of bed and move around. Pt is independent in his room. Pt states that he becomes "a little winded" when moving around but does not feel like he needs supplemental oxygen. Pt's cough is decreased from yesterday. Pt has been offered Tessalon Pearls for cough but declines medication. Pt states that he does not like to take pills and he prefers to drink hot tea. Pt telemetry today Sinus Rhythm/Sinus tachycardia 90-110 with 130 with activity and occasional PVCs.
[2016-11-01 03:36] VITALS: BP 109/71; PULSE 93; RESP 16; O2SAT 92
[2016-11-01 03:45] LABS: Mean Corpuscular Hemoglobin 31.3 pg (27.0-35.0); Mean Corpuscular Volume 95.1 fL (81-100); Platelet Count 568 bil/L (150-400)
[2016-11-01 03:59] LABS: INR 1.11 ratio
[2016-11-01 04:08] LABS: BASOPHILS % (AUTO) 0 % (0-3); EOSINOPHILS % (AUTO) 0 % (0-5); MONOCYTES % (AUTO) 7 % (4-12); NEUTROPHILS % (AUTO) 81 % (40-74)
[2016-11-01 04:43] LABS: Magnesium 2.1 mg/dL (1.6-2.6)
--- NOTE | 2016-11-01 06:35 | NUR ---
Respiratory Pt continues to have SpO2 > or = 92% on RA and does not want supplemental oxygen at this time. Pt's lungs sounds very coarse with the right lung sounding more coarse than the left upon auscultation. Pt said that he did not feel SOB when walking short distances and did not c/o SOB throughout the shift.
[2016-11-01] MEDS: Linezolid Inj 600 MG in IV Premix 1 EACH IV SCH (08:11)
[2016-11-01] MEDS: MeTOProlol XL 25 mg ER24 Tablet PO SCH (08:15)
--- NOTE | 2016-11-01 08:38 | DRSVH ---
PROCEDURE: X-RAY CHEST ONE VIEW, PORTABLE ([id number]) INDICATIONS: dyspnea TECHNIQUE: One view of the chest was acquired. COMPARISON: [facility], CR, XR CHEST 1VW (PORTABLE), 10/29/2016, 5:17. FINDINGS: Surgical changes and devices: None. Lungs and pleura: There is persistent appearance of right hemithorax opacification most severe in the right upper lobe. Overall, there is a small degree of interval improvement. Mediastinum: Mediastinal contours appear normal. Heart size is normal. Bones and chest wall: No suspicious bony lesions. Overlying soft tissues appear unremarkable. IMPRESSION: Extensive right hemithorax airspace disease opacification with slight improvement as abov e. Dictated by: Ladan Celaya M.D. on 11/01/2016 at 8:36 Approved by: Ladan Celaya M.D. on 11/01/2016 at 8:37
[2016-11-01 08:45] VITALS: BP 117/75; PULSE 99; RESP 20; O2SAT 93
[2016-11-01 11:48] VITALS: BP 109/82; PULSE 98; RESP 20; O2SAT 94
--- NOTE | 2016-11-01 14:56 | PCM.DIMED ---
Piotr Encinas DO 11/01/16 1456: Discharge Instructions Date of Service Nov 01, 2016 Dates of Hospitalization Oct 27, 2016 at 16:17 Discharge Diagnosis Discharge Diagnosis Sepsis, acute Community acquired pneumonia; sputum with Staph aureus SVT or wide complex tachycardia Elevated transaminases Hyponatremia Prolonged QTc Pre-Diabetes mellitus Medication Instructions During this hospitalization you were started on some new medications. Please follow these instructions unless otherwise notified by a physician. Note that your medications may continued to be changed by your physician. Prescriptions for the following medications have been sent to your pharmacy. -Linezolid 600mg. Take 1 tablet by mouth twice daily for the next 8 days (until 11/09/2016) -Metoprolol 25mg. Take 1 tablet by mouth daily. Diet Heart Healthy, Diabetic Activity Limited until seen by PCP Call your provider Fever or Chills, Shortness of breath, Bleeding, Chest pain Patient Instructions Please take the medications as directed above. You will need to discuss the following with the provider you're establishing with at [facility]: -Pre-diabetes with hemoglobin A1c of 5.9% -Elevated liver enzymes -Pneumonia Follow-up plan Arrangements have been made for you to follow up with a provider at the [facility]. Your appointment is on November 09 at 9:00AM. The following is the contact information: [address] [address] Follow-up with PCP in: 1 week Provider: [facility] Deepak Mix MD 11/02/16 0749: Discharge Instructions Attending's Statement The patient was seen and examined together with Dr. Encinas on 11/01/2016 and I agree with the history, exam and plan as outlined in the note above. . Piotr Encinas DO Nov 01, 2016 14:56 Deepak Mix MD Nov 02, 2016 07:49
[2016-11-01] MEDS ORDERED: LINE600T7 PO (15:01)
[2016-11-01] MEDS ORDERED: METO25TA99 PO (15:01)
--- NOTE | 2016-11-01 15:12 | PCM.DC.MED ---
Discharge Summary Date of Service Nov 01, 2016 Dates of Hospitalization Date of Hospital Admission Oct 27, 2016 at 16:17 Date of Discharge: Nov 01, 2016 Providers: Admitting Physician: Pelon Lacey MD Primary Care Physician: Vince Blackman MD Attending Physician: Pelon Lacey MD Diagnosis at Time of Discharge Diagnosis at Time of Discharge 1. Sepsis, acute, present on admission, improving. 2. Community acquired pneumonia, acute, present on admission, improving. 3. SVT or wide complex tachycardia, acute, present on admission, improved. 4. Elevated transaminases, acute, present on admission, stable. 5. Hyponatremia, acute, present on admission, improved. 6. Prolonged QTc, acute, present on admission, resolved. 7. Pre-Diabetes mellitus, present on admission, new diagnosis. Procedures XRay, CTs & MRIs Portable chest x-ray performed 10/29/2016 IMPRESSION: No significant interval change in extensive airspace disease within the right lung. Continued radiographic surveillance to resolution is recommended. Dictated by: Naun Puga [facility] Interpreted: Elizabeth Fry MD on 10/29/2016 at 9:42 Cardiac Echo Impression Interpretation Summary 1. Normal left ventricular size, wall thickness and systolic function with an estimated EF of 60-65% 2. Normal right ventricular size and systolic function. 3. No valvular pathology appreciated. There is no old study for comparison. Reading Physician:12:43 PM Brief History Per H&P by Dr. Noelle Hernandez: Patient is a 66 year old male with no known past medical history. He presented to [facility] on 10/27/16 with worsening shortness of breath. He reports that this has been coming on over the past few weeks but has gotten especially bad over the last week. He has difficulty laying flat, preferring to sit in his recliner for ease of breathing. He has noticed some wheezing that has also worsened over the same period. He has a productive cough but cannot describe the sputum. He denies fever, chills, and sweats. He has had no other cold or flu symptoms like sore throat or sinus congestion. He denies chest pain and heart racing. He endorses generalized weakness/fatigue. He has had poor appetite and difficulty sleeping. In the ED the patient was afebrile with a heart rate of 172, respiratory rate of 23, blood pressure of 117/83 and O2 saturation of 91% on room air. Labs were remarkable for WBC 26.9, platelets 446, sodium 125, lactic acid 2.1, total bilirubin 1.4, AST 72, ALT 55. For his sustained wide complex tachycardia the patient first received adenosine. The tachycardia was refractory to that medication and it was decided to cardiovert him. This intervention was affective. IV antibiotics initiated as were IV fluids. Patient discussed with Dr. Hdez and will be admitted to [facility] with telemetry. Hospital Course Patient is a 66 year old male with no known past medical history presented with worsening shortness of breath. Patient noted to have SVT requiring cardioversion in the ED. Treated for pneumonia. 1. Sepsis, acute, present on admission, improving. - Criteria met: leukocytosis (26.9), tachycardia (172), likely pulmonary source. - CBC continued to be elevated on day of discharge; however, patient had received prednisone during hospitalization. - Recommend follow-up CBC for resolution of leukocytosis 2. Community acquired pneumonia, acute, present on admission, improving. - Sputum culture with Staph aureus. - He was on PRN nebulizers and Tessalon Perles during his hospitalization - Patient received five days of antibiotics including ceftriaxone, levofloxacin , doxycycline, and azithromycin without significant improvement. He was subsequently started on Linezolid 600mg BID with anticipated total 10 day course. Anticipated end date 11/09/2016. - Patient was weaned off supplemental O2 and able to maintain O2 saturation - Consider follow up chest x-ray in the future to ensure resolution of pneumonia 3. SVT or wide complex tachycardia, acute, present on admission, improved. - Patient cardioverted in the ED (10/27/2016). Tolerated this procedure well with good results. - Possibly secondary to sepsis, however, patient states that he has always had a high heart rate as far back as his teens typically runs greater than 100bpm. This is per patient report, there is no documentation of this. - Patient started on metoprolol 25mg daily during hospitalization 4. Elevated transaminases, acute, present on admission, stable. - No known past medical history. Denies alcohol consumption. Etiology uncertain at this time. Appears hepatocellular in origin as alk phos normal. Possibly MCCLAIN. - Recommend follow-up with CMP and imaging studies (ultrasound) to assess liver 5. Hyponatremia, acute, present on admission, improved. - Reported poor PO intake recently with likely fluid depletion, additionally has pulmonary infection. 6. Prolonged QTc, acute, present on admission, resolved. - Followed with EKGs in the hospital and stable 7. Pre-Diabetes mellitus, present on admission, new diagnosis. - Hemoglobin A1c 5.9. - Patient will need appropriate management as this is a new diagnosis. He may benefit from further diabetes education and nutritional counseling. . Exam Vital Signs (Last) Date Time Temp Pulse Resp B/P Pulse Ox O2 Delivery O2 Flow Rate FiO2 11/01/16 11:48 36.4 98 20 109/82 94 Room Air 10/31/16 03:21 2.00 Test 10/27/16 14:24 10/27/16 18:15 10/27/16 18:30 10/29/16 03:20 Activated Partial Thromboplast Time 29.8sec (22.8-33.0) Hemoglobin A1c 5.9% (4.8-5.6) Troponin T < 0.010ug/L (0.0-0.011) Pro-B-Type Natriuretic Peptide 1421pg/mL (0-210) Urine Color Yellow (YELLOW) Urine Appearance Clear (CLEAR,HAZY) Urine pH 6.0 (5.0-8.0) Urine Specific [place] 1.015 (1.003-1.035) Urine Protein Negativemg/dL (NEG,TRACE) Urine Glucose (UA) Negativemg/dL (NEGATIVE) Urine Ketones 15mg/dL (NEGATIVE) Urine Occult Blood Trace (NEGATIVE) Urine Nitrite Negative (NEGATIVE) Urine Bilirubin Negative (NEGATIVE) Urine Urobilinogen 4.0mg/dL (NORMAL) Urine Leukocyte Esterase Negative (NEGATIVE) Urine RBC 0-2/hpf (0-2) Urine WBC 0-5/hpf (0-5) Urine Epithelial Cells Few/hpf (NONE-MOD) Urine Crystals None seen (NONE SEEN) Urine Bacteria Few/hpf (NONE-FEW) Urine Hyaline Casts Occasional/lpf (NONE) Urine Granular Casts Occasional (NONE SEEN) Urine Waxy Casts None seen (NONE SEEN) Urine Red Blood Cell Casts None seen (NONE SEEN) Urine White Blood Cell Casts None seen (NONE SEEN) Urine Mucus None seen (None Seen) Urine Trichomonas None seen (NONE SEEN) Urine Yeast None (NONE SEEN) Urinalysis Comment None Urine Culture Reflexed Not indicated Urine Random Sodium < 10mEq/L Hepatitis A IgM Antibody Negative (Negative) Hepatitis B Surface Antigen Negative (Negative) Hepatitis B Core IgM Antibody Negative (Negative) Hepatitis C Antibody 0.1s/co ratio (0.0-0.9) Hepatitis C Comment Comment (.) Urine Legionella pneumophilia Ag Negative (Negative) Hold Bryson Top Tube Received (Received) Lactic Acid Level 1.2mmol/L (0.4-2.0) Thyroid Stimulating Hormone (TSH) 2.060uIU/mL (0.450-4.500) Test 10/30/16 02:40 10/31/16 02:30 11/01/16 03:30 Procalcitonin 0.43ng/mL (0.00-0.08) Hematology Comments White Blood Count 21.4th/mm3 (3.8-10.1) Red Blood Count 3.87mil/mm3 (4.40-5.80) Hemoglobin 12.1g/dL (13.8-17.2) Hematocrit 36.8% (41.0-50.0) Mean Corpuscular Volume 95.1fL (81-100) Mean Corpuscular Hemoglobin 31.3pg (27.0-35.0) Mean Corpuscular Hemoglobin Concent 32.9% (32.0-37.0) Red Cell Distribution Width 13.5% (12.3-15.4) Platelet Count 568bil/L (150-400) Neutrophils (%) (Auto) 81% (40-74) Lymphocytes (%) (Auto) 8% (14-46) Monocytes (%) (Auto) 7% (4-12) Eosinophils (%) (Auto) 0% (0-5) Basophils (%) (Auto) 0% (0-3) Band Neutrophils % 1% (1-5) Metamyelocytes % 2% (0-0) Prothrombin Time 11.9sec (8.1-12.5) Prothromb Time International Ratio 1.11ratio Sodium Level 133mEq/L (134-144) Potassium Level 4.5mEq/L (3.5-5.2) Chloride Level 96mEq/L (97-108) Carbon Dioxide Level 25mmol/L (18-29) Blood Urea Nitrogen 12mg/dL (8-27) Creatinine 0.50mg/dL (0.76-1.27) Estimat Glomerular Filtration Rate 178mL/min (>59) Glucose Level 128mg/dL (60-99) Calcium Level 8.6mg/dL (8.5-10.1) Phosphorus Level 4.0mg/dL (2.5-4.9) Magnesium Level 2.1mg/dL (1.6-2.6) Total Bilirubin 0.4mg/dL (0.0-1.2) Aspartate Amino Transf (AST/SGOT) 83U/L (0-50) Alanine Aminotransferase (ALT/SGPT) 92U/L (0-44) Alkaline Phosphatase 69U/L (25-160) Total Protein 6.0g/dL (6.4-8.4) Albumin 2.1g/dL (3.4-5.0) Discharge Medications Discharge Medications Linezolid (Linezolid) 600 Mg Tablet 600 MG PO BID Prescribed by: DAYRON PISANO DO Metoprolol Succinate ER (Metoprolol Succinate ER) 25 Mg Tab.er.24h 25 MG PO DAILY Prescribed by: DAYRON PISANO, DO Additional med instructions During this hospitalization you were started on some new medications. Please follow these instructions unless otherwise notified by a physician. Note that your medications may continued to be changed by your physician. Prescriptions for the following medications have been sent to your pharmacy. -Linezolid 600mg. Take 1 tablet by mouth twice daily for the next 8 days (until 11/09/2016) -Metoprolol 25mg. Take 1 tablet by mouth daily. Followup Plan Follow-up plan Arrangements have been made for you to follow up with a provider at the [facility]. Your appointment is on November 09 at 9:00AM. The following is the contact information: [facility] [address] [place] [address] Discharge Diet: Heart Healthy, Diabetic Discharge Activity: Limited until seen by PCP Patient Instructions Please take the medications as directed above. You will need to discuss the following with the provider you're establishing with at [facility]: -Pre-diabetes with hemoglobin A1c of 5.9% -Elevated liver enzymes -Pneumonia Follow-up with PCP in: 1 week Provider: [facility] Time spent Greater than 30 minutes was spent in preparation of discharge with greater than 50% of that time dedicated to patient counseling and coordination of care. . Attending Statement The patient was seen and examined together with Dr. Pisano on 11/01/2016 and I agree with the history, exam and plan as outlined in the note above. . copies to: Vince Blackman MD, Bob A DO Nov 01, 2016 15:12 Deepak Mix MD Nov 02, 2016 07:51
--- NOTE | 2016-11-01 15:40 | NUR ---
Social Work Note: Discharge Data& Assessment: Per pt is medically improved and ready to discharge home via private pay cab. Fabien Cuellar is a 66 year old male admitted on 10/27/2016 for sepsis and pneumonia. Per pt is medically improved and ready to discharge. SW met with pt at bedside to confirm discharge plan and assess for any unmet needs. SW provided quotes for [employer] with their phone numbers. Pt is unsure when he will be leaving and plans to call himself. Pt denies any other needs. No other discharge needs identified. Plan: Per pt is medically ready to discharge home via private pay taxi. Pt denies any other needs. No other discharge needs identified. KAREN Renae
[2016-11-01 15:54] VITALS: BP 113/86; PULSE 93; RESP 18; O2SAT 95
--- NOTE | 2016-11-01 16:18 | NUR ---
Discharge Pt educated on diagnosis, new medications, signs and symptoms to watch out for, and future appointments. Pt demonstrated understanding of teaching and was able to repeat back. confirmed that prescriptions were electronically sent to preferred pharmacy. Telemetry leads were removed. IV was removed. Pt left the building at 1620 with all belongings and possessions with a staff member assisting him downstairs.
[2016-12-22] MEDS ORDERED: [UNRECOGNIZED DRUG - CODE] PO (09:27)
[2017-01-12] MEDS ORDERED: ONDA-54 PO (09:25)
== END 2016-11-01 16:44 | disposition home or self-care (01) | DRG 871 ==
LOC: EDUNIT# 14:16 → EDBD 14:16 → SED 14:16 → CCU 16:17 → PCC 17:15
PROVIDERS: ADMIT Hospitalist; ATTEND Neuromusculoskeletal Medicine & OMM
PROC: 5A2204Z Restoration of Cardiac Rhythm, Single (ICD-10-PCS; principal; 2016-10-27)
DX: A41.9 Sepsis, unspecified organism (principal); J18.9 Pneumonia, unspecified organism; I47.1 Supraventricular tachycardia; E87.1 Hypo-osmolality and hyponatremia; Z87.891 Personal history of nicotine dependence; I45.81 Long QT syndrome; R74.0 Nonspecific elevation of levels of transaminase and lactic acid dehydrogenase [LDH]; R73.03 Prediabetes

== ENCOUNTER 2016-12-02 01:29 | Day surgery (SDC) | payer OTHER ==
[~2016-12-02] VITALS: Ht 177.8 cm; Wt 84.0 kg
[2016-12-02] VITALS (7 sets, daily range): BP systolic 85–114; BP diastolic 57–77; PULSE 91–100; RESP 16–22; O2SAT 91–95
[~2016-12-02 01:29] MED LIST: LINE600T7 PO; METO25TA99 PO
[2016-12-02] MEDS ORDERED: EPINEPHrine 0.1 mg/mL 10 mL Syringe ONE ×2 (01:30)
[2016-12-02] MEDS ORDERED: Sodium Chloride LOK Flush 10 mL Syringe IVFLUSH PRN (07:55)
[2016-12-02] MEDS ORDERED: fentaNYL-PF 50 mCg/mL 2 mL Inj IVPUSH PRN (07:55)
[2016-12-02] MEDS ORDERED: Lidocaine PF 2% 5 mL Inj MUC_MEMBRM SCH (07:55)
[2016-12-02] MEDS ORDERED: Lidocaine PF 2% 10 mL Inj ONE (11:15)
[2016-12-02] MEDS ORDERED: Lidocaine Topical 2% 30 mL Jelly ONE (11:16)
[2016-12-02] MEDS ORDERED: 0.9% Sodium Chloride 1,000 ML IV ONE ×2 (11:35)
--- NOTE | 2016-12-02 13:19 | DRSVH ---
PROCEDURE: X-RAY CHEST ONE VIEW, PORTABLE ([id number]) INDICATIONS: S/P LUNG BX TECHNIQUE: One view of the chest was acquired. COMPARISON: [facility], CR, XR CHEST 1VW (PORTABLE), 11/01/2016, 3:25. FINDINGS: Surgical changes and devices: None. Lungs and pleura: No pleural effusions or pneumothorax. Extensive right lung opacification noted wit h increased consolidation in the right upper lung zone compared to 11/01/16. Mediastinum: Mediastinal contours appear normal. Heart size is normal. Bones and chest wall: No suspicious bony lesions. Overlying soft tissues appear unremarkable. IMPRESSION: No post biopsy pneumothorax. Dictated by: Elizabeth Fry MD, PhD on 12/02/2016 at 13:15 Approved by: Elizabeth Fry MD, PhD on 12/02/2016 at 13:17
--- NOTE | 2016-12-02 20:59 | ENDO ---
[address] [address] ENDOSCOPY PROCEDURE PATIENT: STEPHANIE STEELE : 1950 MR#: [id number] ADMIT: 12/02/2016 JOB ID: [id number] DATE: 12/02/2016 PROCEDURE: Bronchoscopy. PERFORMED BY: Maribel Sarah MD, Pulmonary Medicine. INDICATION: Right lung mass. Informed consent was obtained from the patient after risks and benefits of the procedure were discussed. PROCEDURE IN DETAIL: The patient was asked to gargle topical lidocaine. Additional lidocaine was administered via atomizer to the oropharynx. IV sedation was then administered and scope was passed through the mouth. Vocal cords were visualized. They appear to be moving normally, but the surface of the vocal cords bilaterally had very superficial mild ulceration. Scope was passed through the cords into the trachea. Trachea was normal in appearance. Soledad was normal. A complete left-sided airway inspection was performed first, and all of the left-sided airways were normal in appearance without any mucosal abnormalities. We then evaluated the right-sided airway. At the level of the right upper lobe takeoff, the airway was completely occluded by tumor. Distal to this, there was significant narrowing of the bronchus intermedius, also presumably with tumor. I could not visualize the right middle lobe takeoff either. I could see the right lower lobe airways although with difficulty because the scope would not pass beyond the bronchus intermedius. We proceeded with endobronchial biopsies in the right upper lobe region primarily where the orifice should have been. We also did further biopsies at the level of the bronchus intermedius. At least 12 good biopsy samples were obtained. There was a small amount of bleeding, as expected. FINDINGS: Complete occlusion of right upper lobe and right middle lobe airways with presumed endobronchial tumor. Significant narrowing of the bronchus intermedius but with patent right lower lobe airways. MEDICATIONS: 1. 2 mg of midazolam. 2. 50 mcg of fentanyl. 3. 14 mL of lidocaine. 4. 2 cc of diluted epinephrine. COMPLICATIONS: Estimated blood loss of about 5 cc. The patient tolerated the procedure quite well. I described the findings to him at the end of the procedure. SAMPLES: Endobronchial biopsies of the right upper lobe/bronchus intermedius, sent for pathology.
--- NOTE | 2016-12-03 16:52 | PATH ---
SURGICAL PATHOLOGY Attending Physician:Maribel Sarah MD CASE STATUS: Signed Out PATIENT NAME: STEPHANIE STEELE PID: [id number] : 1950 DATE COLLECTED:12/02/2016 16:43 SPECIMEN: Lung Biopsy CLINICAL HISTORY: RIGHT LUNG MASS 1. RUL BXS FINAL DIAGNOSIS: Lung, Right Upper Lobe, Biopsy: Positive for neoplasm, favor non-small cell carcinoma. Immunohistochemistry studies pending; results will be reported as an addendum. ICD10: C34.11 NOTE: Results called to Rony Alberts on behalf of Dr. Sarah, 12-03-16 at approximately 9:55 a.m. GROSS DESCRIPTION: The specimen is received in one formalin filled container labeled with the patient's name, sublabeled "RUL" and consists of multiple portions of tissue which aggregate to 0.5 x 0.5 x 0.3 CM. The specimen is entirely submitted in one cassette. 12/02/2016 [facility] ICD-9 CODES: CPT CODES: 1: 65908, 60467, 10623, 55557, 77538, [address] PROCEDURE/ADDENDA: Addendum SPI Addendum Diagnosis Immunocytochemical results are as follows: CK5/6:Positive. p63:Positive. TTF1:Negative. Napsin:Negative. p40:Positive. 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 Addendum Comment {Not Entered} Electronically Signed Out Adama Major MD Addendum SPI Addendum Diagnosis TEST: PD-L1 - KEYTRUDA Results Table Image PD-L1 - KEYTRUDA (R) Tumor ProportionInterpretation [id number] <1% No Expression Disclaimer This Test was performed by [employer] at [address] [address], [place], [address]. [facility] is a business unit of [employer], a wholly-owned subsidiary of [employer]. Any image(s) that accompany this report is/are a junior sales representative image(s) only and should not be used to render a diagnosis. This interpretation is contingent on the specimen and the clinical information received. Known positive cells or tissues are employed with each test and examined to ensure positivity. Positive and negative internal controls, if present, react appropriately. This analysis is an adjunct to the evaluation of the referring physician and does not represent a final diagnosis. The immunohistochemistry tests performed at [employer] were validated on tissue fixed in 10% neutral buffered formalin. The performance characteristics of the tests performed on tissue processed in other fixatives is not known. This assay has not been validated on decalcified tissues. Results should be interpreted with caution if this specimen was decalcified given the likelihood of decreased staining or false negativity on decalcified specimens. Addendum Comment Please see [facility] report [id number] for complete details. Electronically Signed Out Noelle Thapa MD Electronically Signed Out Essie Schulte MD [facility] [address], [place] [address] Technical component performed at [facility], [address] [place] [address] Ave[address], [place], [address]
[2016-12-22] MEDS ORDERED: [UNRECOGNIZED DRUG - CODE] PO (09:27)
[2017-01-12] MEDS ORDERED: ONDA-54 PO (09:25)
== END 2016-12-02 23:59 | disposition home or self-care (01) ==
LOC: SAS 01:29
PROVIDERS: ATTEND Internal Medicine Critical Care Medicine
DX: C34.11 Malignant neoplasm of upper lobe, right bronchus or lung (principal); J18.9 Pneumonia, unspecified organism; R06.02 Shortness of breath; R04.2 Hemoptysis; I10 Essential (primary) hypertension; Z87.891 Personal history of nicotine dependence
CPT/HCPCS: 31625; 71010; 99153; G0500; J0171; J2250; J7030

== ENCOUNTER 2016-12-30 11:25 | Day surgery (SDC) | payer OTHER ==
[~2016-12-30] VITALS: Ht 177.8 cm; Wt 84.0 kg
--- NOTE | 2016-12-30 08:35 | PCM.HPANE ---
Patient Data Surgeon Admitting Provider: Attending Provider:Holland Douglass MD Primary Care Physician:Carlos Cruz DO Other Provider:Emory Gould Anesthesia Reason for Visit Lung Cancer Ht/WT & BMI Height (Feet): 5 Height (Inches): 10 Weight (Kilograms): 84 Body Mass Index 26.00 Allergies Coded Allergies: No Known Allergies (Verified Allergy, Unknown, 12/29/16) Past Anesthesia History Anesthesia History: Denies:: Abnormal Airway, Anesthesia Reactions, Difficult Intubation, Fam Anesthesia Reaction, Fam Malignant Hypertherm, Malignant Hyperthermia Diabetes History Hx Diabetes?: No MRSA MRSA: No Medications Home Meds Incl Beta Narda: Yes (METOPROLOL) Active Scripts Metoprolol Succinate ER 25 Mg Tab.er.24h25 Mg PO DAILY #30 TABLET Ref 0 Prov:Piotr Encinas DO 11/01/16 Reported Medications Guaifenesin/Codeine Phosphate (Virtussin AC Liquid)473 Ml [id number] Ml PO HS 12/22/16 History History of ENT Problems?: No HEENT History: Denies:: Abnormal Airway Cataracts Difficult Intubation Dysphagia Glaucoma Hearing Problem Sinus Problem TMJ Denture Type: None Teeth Condition: Within Normal Limits Hx of Heart Problems?: Yes Cardiovascular History: Positive for:: Hypertension Irregular Heartbeat (SVT-s/p cardioversion 10/27/16) Denies:: Congestive Heart Failure Heart Murmur (ECHO 10/2016 EF 60-65%) Valvular Heart Disease Hx of Respiratory Problem?: Yes Respiratory History: Positive for:: Chest Surgery (S/P BRONCHOSCOPY 11/2016 ) Cough (INTERMITTANT) Dyspnea (DAILEY) Pneumonia (10/2016) Denies:: COPD Tuberculosis Other Resp Pertinent History: LUNG CA/IV ACCESS=CURRENT PROBLEM SQUAMOUS CELL CA RT UPPER LOBE W/ OCCLUSION OF RT UPPER & MIDDLE LOBE AIRWAYS W / TUMOR Hx Neurologic Problems?: Yes Neurological History: Denies:: CVA Hx of GI Problems?: No Hx of Problems?: No Male Hx: Denies:: Prostate Problems Scrotal Mass Testicular Surgery Hx Musculoskeletal Problems?: No Musculoskeletal History: Positive for:: Musculoskeletal Trauma (hx of finger injury, resolved) Hx of Psycho/Social Problems?: No Hx Surgeries?: Yes (BRONCHOSCOPY) Hx Any Other Health Problems?: Yes Other History: Positive for:: Cancer (SCC RT UPPER/MIDDLE LOBE (LUNG)) Denies:: Endocrine Disease Hospitalization Thyroid Disease History Blood Transfusions: Denies:: Blood Transfusions Hx Diabetes: No Hx Alcohol Use: No (QUIT 2010)Hx Substance Use: No Smoking Status: Former Smoker Have You Smoked inLast 12 mo: NoApprox How Many Cigarettes/day: 1 PPD X 35YRS Stop/Bang S-Snoring: Do You Snore Loudly: No T-Tired: feel tired, fatigued: Yes O-Obsered: Observed not breath: No P-Blood Pressure: treated: Yes B- Body Mass Index > 35 kg/m2: No A- Age over 50: Yes N- Neck Large Circumference: No G- Gender Male: Yes REID Total Score: 4 Risk Assessment Category Category 1A: Patient has history of documented sleep apnea, and HAS NOT received any narcotic, sedative or anesthesia administration during this stay. Category 1B: Patient has history of documented sleep apnea, and HAS received any narcotic , sedative or anesthesia administration during this stay Category 2: Patient has SUSPECTED Obstructive Sleep Apnea, and HAS received any narcotic , sedative or anesthesia administration during this stay. Category 3: Patient has SUSPECTED Obstructive Sleep Apnea and HAS NOT received narcotic, sedative or anesthesia administration during this stay. Category 4: Outpatient in Procedural Areas with known sleep apnea or who screen positive for High Risk via the STOP/BANG questionnaire. Exam Exam General Appearance: Alert, Oriented X3, Cooperative HEENT/AIRWAY: MP 2, Neck Movement, Mouth Opening Lungs: Normal Air Movement Heart: Exam Unremarkable Plan Impression Patient chart reviewed, patient interviewed and anesthestic plan with risks, benefits, and alternatives discussed, and informed consent obtained. ASA Physical Status: ASA2 Mod Systemic Disease Anesthetic Plan: MAC Bene/Risks/Altern/Consents: Yes HP Complete Prior to Induction: Yes Jose Maria Zhong MD Dec 30, 2016 08:35
[~2016-12-30 11:25] MED LIST changes: +CeFAZolin Inj 2,000 MG in Dextrose 5%-Pha MIX 50 ML IV SCH; -LINE600T7 PO; +Lactated Ringer's 1,000 ML IV SCH; +[UNRECOGNIZED DRUG - CODE] PO
[2016-12-30] MEDS ORDERED: Propofol 10,000 mCg/mL 20 mL Inj ONE (11:26)
[2016-12-30] MEDS ORDERED: fentaNYL-PF 50 mCg/mL 2 mL Inj ONE (11:26)
[2016-12-30 12:11] VITALS: BP 112/74; PULSE 100; RESP 18; O2SAT 95
[2016-12-30] MEDS ORDERED: Lactated Ringer's 1,000 ML IV ONE (12:18)
[2016-12-30] MEDS ORDERED: Lactated Ringer's 1,000 ML IV SCH (14:03)
[2016-12-30] MEDS ORDERED: Lactated Ringer's 500 ML IV PRN (14:03)
[2016-12-30] MEDS ORDERED: EPHEDrine Sulfate 50 mg/mL Inj IVPUSH PRN (14:05)
[2016-12-30] MEDS ORDERED: Phenylephrine 10,000 mCg/mL Inj IVPUSH PRN (14:05)
[2016-12-30] MEDS ORDERED: fentaNYL-PF 50 mCg/mL 2 mL Inj IVPUSH PRN (14:05)
[2016-12-30] MEDS ORDERED: HYDROmorphone 1 mg/mL Inj IVPUSH PRN (14:05)
[2016-12-30] MEDS ORDERED: Labetalol 5 mg/mL 4 mL Inj IV PRN (14:05)
[2016-12-30] MEDS ORDERED: Dexamethasone 4 mg/mL Inj IVPUSH PRN (14:05)
[2016-12-30] MEDS ORDERED: Atropine 0.4 mg/mL Inj IVPUSH PRN (14:05)
[2016-12-30] MEDS ORDERED: Ondansetron 2 mg/mL 2 mL Inj IVPUSH PRN (14:05)
[2016-12-30] MEDS ORDERED: hydrALAZINE 20 mg/mL Inj IVPUSH PRN (14:05)
[2016-12-30] MEDS ORDERED: Bupivacaine-MPF 0.25% 30 mL Inj INFILTRATE ONE (14:16)
[2016-12-30] MEDS ORDERED: HepLOK Flush 100 unit/mL 5 mL Inj IVFLUSH ONE (14:20)
[2016-12-30 14:40] VITALS: BP 102/68; PULSE 89; RESP 16; O2SAT 94
[2016-12-30 14:44] VITALS: BP 100/62; PULSE 88; RESP 16; O2SAT 93
[2016-12-30 15:35] VITALS: BP 106/63; PULSE 90; RESP 16; O2SAT 95
--- NOTE | 2016-12-30 15:53 | DRSVH ---
PROCEDURE: X-RAY CHEST ONE VIEW, PORTABLE ([id number]) INDICATIONS: 66-year-old male with Port-A-Cath placement. TECHNIQUE: One view of the chest was acquired. COMPARISON: [facility], [place], PET NECK TO MID THIGH STD, 12/29/2016, 13:18. [facility], CR, XR CHEST 1VW (PORTABLE), 12/02/2016, 12:34. [facility], CR, XR CHEST 2VW, 11/25/2016, 12:15. [facility], CR, XR CHEST 1VW (PORTABLE), 11/01/2016, 3:25. FINDINGS: Surgical changes and devices: New left chest wall Port-A-Cath is present, with tip in the mid superio r vena cava. Lungs and pleura: There is persistent right upper lung opacity, with associated volume loss and ipsi lateral mediastinal shift. There is new small basal right pleural effusion. No pneumothorax. Mediastinum: Mediastinal contours appear normal. Heart size is normal. Bones and chest wall: No suspicious bony lesions. Overlying soft tissues appear unremarkable. IMPRESSION: 1. New left chest wall Port-A-Cath is in expected position. No pneumothorax. 2. Persistent right upper lobe opacity corresponds with malignancy as better delineated on comparison PET/CT scan, with associated right upper lobe volume loss causing ipsilateral mediastinal shift. 3. Interval development of small dependent right pleural effusion. Dictated by: Dario Mo M.D. on 12/30/2016 at 15:49 Approved by: Dario Mo M.D. on 12/30/2016 at 15:52
--- NOTE | 2016-12-31 02:22 | OP ---
[address] [address] OPERATIVE REPORT PATIENT: STEPHANIE STEELE : 1950 MR#: [id number] ADMIT: 12/30/2016 JOB ID: [id number] DATE OF SURGERY: 12/30/2016 ANESTHESIA: MAC with local. PREOPERATIVE DIAGNOSIS(ES): Lung cancer. POSTOPERATIVE DIAGNOSIS(ES): Lung cancer. OPERATIVE PROCEDURE: Insertion of left subclavian vein Port-A-Cath using fluoroscopy with interpretation for guidance. SURGEON: Holland Douglass MD SPLITTING MACHINE FEEDER: Armando Yoo PA-C COMPLICATIONS: None. ESTIMATED BLOOD LOSS: Less than 5 mL. CONDITION: Satisfactory. SPECIMENS: None. FINDINGS: A regular peripheral port was placed in the left subclavian vein. 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 OPERATIVE TECHNIQUE: The patient was taken to the operating room and placed in the supine position. Light sedation was administered. The neck and chest were prepped and draped in the standard surgical fashion. Perioperative antibiotics were given. A procedural pause was performed. The left subclavian vein was then accessed with the first try using the finder needle. A wire was inserted and position in the vein confirmed using fluoroscopy. The wire was seen to course through the heart and into the inferior vena cava. Local anesthetic was injected. A subcutaneous pocket was then created in the left anterior chest. The Port-A-Cath was sutured in place using three 2-0 Prolene sutures. The catheter was tunneled up to the wire exit point and then inserted into the vein under fluoroscopic visualization using the Seldinger technique. Good final position was confirmed. The port aspirated and flushed nicely. This was locked with heparin. The skin was closed using 3-0 Vicryl deep dermis, followed by running 4-0 Monocryl. Dermabond was applied. The entire procedure was well tolerated without complication.
--- NOTE | 2016-12-31 07:08 | PCM.ANEP1 ---
Post Anesthesia PACU Phase 1 Assessment Anesthetic Administered: MAC Level of Alertness: Awake, talking GUTIERREZ's with Equal Strength: Yes Pain: No Nausea or Vomiting: No CV Function & Hydration Stable: Yes Airway Device: Lungs: Normal Air Movement PACU Phase 2 Assessment Complications: No Follow up Care: No Patient Instructions Provided: N/A Jose Maria Zhong MD Dec 31, 2016 07:07
[2017-01-12] MEDS ORDERED: ONDA-54 PO (09:25)
== END 2016-12-30 23:59 | disposition home or self-care (01) ==
LOC: SAS 11:25
PROVIDERS: ATTEND General Practice
DX: C34.91 Malignant neoplasm of unspecified part of right bronchus or lung (principal); I10 Essential (primary) hypertension; Z87.891 Personal history of nicotine dependence
CPT/HCPCS: 36561; 71010; 77001; C1788; J0690; J1642; J3010; J7120

== ENCOUNTER → 2017-04-11 | Day surgery (SDC) | payer OTHER ==
[~2017-04-11] VITALS: Ht 177.8 cm; Wt 73.9 kg
[~2017-04-11] MED LIST changes: +Atropine 0.4 mg/mL Inj IVPUSH PRN; -CeFAZolin Inj 2,000 MG in Dextrose 5%-Pha MIX 50 ML IV SCH; +Dexamethasone 4 mg/mL Inj IVPUSH PRN; +EPHEDrine Sulfate 50 mg/mL Inj IVPUSH PRN; +HYDROmorphone 1 mg/mL Inj IVPUSH PRN; +Labetalol 5 mg/mL 20 mL Inj IV PRN; +Lactated Ringer's 1,000 ML IV ONE; +Lactated Ringer's 500 ML IV PRN; +Lidocaine 1%-Epi 1:100,000 20 mL Inj NERVEBLOCK ONE; +METO-386 PO; -METO25TA99 PO; +Ondansetron 2 mg/mL 2 mL Inj IVPUSH PRN; +Phenylephrine 10,000 mCg/mL Inj IVPUSH PRN; +Propofol 10,000 mCg/mL 20 mL Inj ONE; -[UNRECOGNIZED DRUG - CODE] PO; +fentaNYL-PF 50 mCg/mL 2 mL Inj IVPUSH PRN; +fentaNYL-PF 50 mCg/mL 2 mL Inj ONE; +hydrALAZINE 20 mg/mL Inj IVPUSH PRN
[2017-04-11 06:30] VITALS: BP 115/84; PULSE 95; RESP 18; O2SAT 99
--- NOTE | 2017-04-11 07:05 | PCM.HPANE ---
Patient Data Surgeon Admitting Provider: Attending Provider:Dewayne Ochoa MD Primary Care Physician:Carlos Cruz DO Other Provider:Emory Gould Anesthesia Reason for Visit Brain Neoplasm Ht/WT & BMI Height (Feet): 5 Height (Inches): 10.00 Weight (Kilograms): 73.9 Body Mass Index 23.00 Allergies Coded Allergies: No Known Allergies (Verified Allergy, Unknown, 04/05/17) Past Anesthesia History Anesthesia History: Denies:: Abnormal Airway, Anesthesia Reactions, Difficult Intubation, Fam Anesthesia Reaction, Fam Malignant Hypertherm, Malignant Hyperthermia Diabetes History Hx Diabetes?: No MRSA MRSA: No Medications Hypertension Medication: Yes Home Meds Incl Beta Narda: Yes Date Beta Narda Taken: Apr 11, 2017 Time Beta Narda Taken: 429 Reported Medications Metoprolol Succinate ER 25 Mg Tab.er.24h25 Mg PO DAILY Ref 0 04/05/17 Discontinued Reported Medications Ondansetron 8 Mg Tablet8 Mg PO 01/12/17 Guaifenesin/Codeine Phosphate (Virtussin AC Liquid)473 Ml Bizjij32 Ml PO HS 12/22/16 Discontinued Scripts Metoprolol Succinate ER 25 Mg Tab.er.24h25 Mg PO DAILY #30 TABLET Ref 0 Prov:Ly,Piotr A DO 11/01/16 History History of ENT Problems?: No HEENT History: Denies:: Abnormal Airway Cataracts Difficult Intubation Dysphagia Hearing Problem Sinus Problem TMJ Denture Type: None Teeth Condition: Within Normal Limits Hx of Heart Problems?: Yes Cardiovascular History: Positive for:: Hypertension Irregular Heartbeat (SVT-s/p cardioversion 10/27/16 in ED) Denies:: Congestive Heart Failure Heart Murmur Valvular Heart Disease (echo 10/2016- ef 60-65%) Hx of Respiratory Problem?: Yes Respiratory History: Positive for:: Chest Surgery (S/P BRONCHOSCOPY 11/2016 ) Cough (intermittent) Dyspnea Pneumonia (hx of) Denies:: COPD Oxygen Administration Tuberculosis Use of C-PAP Machine Use of Inhalers / NEBS Other Resp Pertinent History: hx of SCC right upper lobe, cavitating lesion- port a cath in place Hx Neurologic Problems?: Yes Neurological History: Denies:: CVA Headaches Multiple Sclerosis Parkinson's Disease Seizures Other Neurological Pertinent: metastatic brain ca current admission problem- Hx of GI Problems?: No Hx of Problems?: No Male Hx: Denies:: Prostate Problems Scrotal Mass Testicular Surgery Skin History: Denies:: History Skin Disorders? Pressure Ulcers Hx Musculoskeletal Problems?: No Musculoskeletal History: Denies:: Back Injury Fibromyalgia Musculoskeletal Trauma (hx of finger injury, resolved) Osteoarthritis Hx of Psycho/Social Problems?: No Hx Surgeries?: Yes (port ) Hx Any Other Health Problems?: Yes Other History: Positive for:: Cancer (lung- metastatic) Denies:: Endocrine Disease Hospitalization Thyroid Disease History Blood Transfusions: Denies:: Blood Transfusions Hx Diabetes: No Hx Alcohol Use: No (former)Hx Substance Use: No Smoking Status: Former Smoker Have You Smoked inLast 12 mo: No Stop/Bang P-Blood Pressure: treated: Yes B- Body Mass Index > 35 kg/m2: No A- Age over 50: Yes N- Neck Large Circumference: No G- Gender Male: Yes Risk Assessment Category Category 1A: Patient has history of documented sleep apnea, and HAS NOT received any narcotic, sedative or anesthesia administration during this stay. Category 1B: Patient has history of documented sleep apnea, and HAS received any narcotic , sedative or anesthesia administration during this stay Category 2: Patient has SUSPECTED Obstructive Sleep Apnea, and HAS received any narcotic , sedative or anesthesia administration during this stay. Category 3: Patient has SUSPECTED Obstructive Sleep Apnea and HAS NOT received narcotic, sedative or anesthesia administration during this stay. Category 4: Outpatient in Procedural Areas with known sleep apnea or who screen positive for High Risk via the STOP/BANG questionnaire. Exam Exam Vital Signs Vital Signs Date Time Temp Pulse Resp B/P Pulse Ox O2 Delivery O2 Flow Rate FiO2 04/11/17 06:30 36.5 95 18 115/84 99 Room Air General Appearance: Alert, Oriented X3, Cooperative, No Acute Distress HEENT/AIRWAY: MP 2 Lungs: Clear to Auscultation Heart: Exam Unremarkable Meds/Labs/Diagnostics Admission Meds Current Medications Lactated Ringer's (Lr) 1,000 ml @ 120 mls/hr Q8H20M ONCE IV Last administered on 04/11/17t 05:48; Start 04/11/17 at 05:00; Stop 04/11/17 at 13:19 Plan Impression Patient chart reviewed, patient interviewed and anesthestic plan with risks, benefits, and alternatives discussed, and informed consent obtained. ASA Physical Status: ASA2 Mod Systemic Disease Anesthetic Plan: MAC Bene/Risks/Altern/Consents: Yes HP Complete Prior to Induction: Yes Jose Maria Zhong MD Apr 11, 2017 07:05
[2017-04-11 08:00] VITALS: BP 109/81; PULSE 96; RESP 18; O2SAT 96
--- NOTE | 2017-04-11 08:10 | PCM.ANEP1 ---
Post Anesthesia PACU Phase 1 Assessment Vital Signs Vital Signs Date Time Temp Pulse Resp B/P Pulse Ox O2 Delivery O2 Flow Rate FiO2 04/11/17 08:00 36.0 96 18 109/81 96 Room Air 04/11/17 06:30 36.5 95 18 115/84 99 Room Air Anesthetic Administered: MAC Level of Alertness: Awake, talking GUTIERREZ's with Equal Strength: Yes Pain: No Nausea or Vomiting: No CV Function & Hydration Stable: Yes Airway Device: Oxygen Delivery: Room Air Lungs: Clear to Auscultation PACU Phase 2 Assessment Complications: No Follow up Care: No Patient Instructions Provided: N/A Jose Maria Zhong MD Apr 11, 2017 08:10
[2017-04-11 08:29] VITALS: BP 105/68; PULSE 84; RESP 18; O2SAT 96
--- NOTE | 2017-04-11 09:47 | OP ---
[address] [address] OPERATIVE REPORT PATIENT: STEPHANIE STEELE : 1950 MR#: [id number] ADMIT: 04/11/2017 JOB ID: [id number] DATE OF SURGERY: 04/11/2017 PREOPERATIVE DIAGNOSIS(ES): Metastatic lung cancer to the brain. POSTOPERATIVE DIAGNOSIS(ES): Metastatic lung cancer to the brain. PROCEDURE: Implantation of skull gold beads stereotactic markers for stereotactic radiosurgery. SURGEON: Dewayne Ochoa MD ANESTHESIA: Local with sedation. DESCRIPTION OF PROCEDURE: The patient was brought to the operating room. IV sedation anesthesia was administered. The entry sites for the gold bead markers on the scalp were prepped in a sterile fashion and injected with Marcaine containing epinephrine. Three different entry sites were utilized, one in the left frontal region, the 2nd in the left occipital region, and the 3rd near the vertex and the right frontoparietal region. At each site, a 3 mm stab incision was made. A drill guide was passed down to the bone surface and then a power drill set to a depth of 3 mm was used to create a small hole in the outer table of the skull and then the gold bead was placed into the skull. Compression was applied to the wound and then Dermabond was applied to seal the skin surface. This was done at the three different sites. There were no complications. There was minimal bleeding. The patient was transferred back to the recovery area in stable condition.
== END | disposition home or self-care (01) ==
LOC: SAS 05:41
PROVIDERS: ATTEND Neurological Surgery
DX: C79.31 Secondary malignant neoplasm of brain (principal); C34.90 Malignant neoplasm of unspecified part of unspecified bronchus or lung; I10 Essential (primary) hypertension; Z87.891 Personal history of nicotine dependence
CPT/HCPCS: 64999; A4648; J2250; J2704; J3010; J7120